=== PATIENT | female | born 1995 | race African-American/Black ===

== ENCOUNTER 2020-05-02 17:02 | Emergency (ER) | payer OTHER, SELFPAY ==
[2020-05-02 17:20] VITALS: BP 110/60; PULSE 74; RESP 15; O2SAT 98; BMI 24.0
[2020-05-02 18:00] VITALS: BP 117/63; PULSE 77; RESP 18; TEMP 39.1
--- NOTE | 2020-05-02 18:11 | ED.GENADULT ---
HPI - General Adult General Chief complaint: General Medical Stated complaint: Pelvic lump Time Seen by Provider: 05/02/20 17:44 Source: patient Mode of arrival: ambulatory Limitations: no limitations History of Present Illness HPI narrative: Patient presents to ED for pelvic pain. Patient states states having lunmp of present in right inner labia since given 2 years ago, but then since last night started have pain in that area. Patient denies any recent shaving day or trauma. Patient states no fever or chills. Related Data Previous Rx's Medication Instructions Recorded amoxicillin-pot clavulanate 1 tab PO Q12H #20 tab 05/02/20 [Augmentin] naproxen 500 mg PO BID PRN #20 tab 05/02/20 oxycodone-acetaminophen [Percocet] 1 tab PO TID PRN #12 tab 05/02/20 sulfamethoxazole-trimethoprim 1 tab PO Q12H #14 tab 05/02/20 [Bactrim DS] Allergies Allergy/AdvReac Type Severity Reaction Status Date / Time No Known Allergies Allergy Unverified 03/10/20 19:48 [No Known Allergies*] Review of Systems Review of Systems: Yes all other systems are reviewed and are negative Constitutional: Constitutional: Reports as per HPI and Reports no additional constitutional complaints Eyes: Eyes: Reports as per HPI and Reports no additional eye complaints ENT: Reports system reviewed and no additional complaints, except as documented and Reports as per HPI Cardiovascular: Cardiovascular: Reports as per HPI and Reports no additional cardiovascular complaints Respiratory: Respiratory: Reports as per HPI and Reports no additional respiratory complaints Gastrointestinal: Gastrointestinal: Reports as per HPI and Reports no additional gastrointestinal complaints Genitourinary: Genitourinary: Reports no additional female genitourinary complaints, Reports as per HPI, Denies hematuria, Denies difficulty voiding, Denies nocturia, Denies genital pruritis, Denies genital lesions, Denies menorrhagia, Denies dyspareunia, Denies dysuria, Denies pelvic pain, Denies flank pain and Denies urinary incontinence Comments: Right labial lump Musculoskeletal: Musculoskeletal: Reports no additional musculoskeletal complaints and Reports as per HPI Neurologic: Reports system reviewed and no additional complaints, except as documented and Reports as per HPI Psychiatric: Psychiatric: Reports no additional psychiatric complaints and Reports as per HPI [facility] Past Medical History Medical History (Updated 05/03/20 @ 00:04 by Background Daemon) No known health problems Social History Social History Alcohol intake: never Smoking Status: Never smoker Use of substances other than those prescribed or required for medical reasons: No Advance Directives: No Advance Directives Information Provided: No Physical Exam Vital Signs: Vital Signs: Last Vital Signs Temp 100.3 F 05/02/20 19:53 Pulse 95 05/02/20 19:08 Resp 14 05/02/20 19:08 BP 117/63 05/02/20 18:00 Pulse Ox 96 05/02/20 19:08 Body Mass Index 24.0 Const: General: cooperative, healthy appearing, comfortable, no acute distress, well developed, alert and awake Orientation/consciousness: oriented to person, oriented to place, oriented to time and patient oriented x3 HENMT: Head: Yes normal to inspection and Yes No palpable skull fracture present Eyes: General: appearance normal, both eyes and all related structures Visual Becker: normal visual becker by confrontation Neck: Neck: Yes normal visual inspection and Yes full ROM Chest: Chest palpation & inspection: normal inspection of the chest, normal palpation of entire chest wall and no localized rib tenderness Resp: Effort & Inspection: normal respiratory effort and able to speak in complete sentences Cardio: Jugular venous distension: no JVD Heart sounds: S1 normal heart sound present and S2 normal heart sound present GI: Inspection: Yes normal to inspection and No abdominal wall ecchymosis Palpation (GI): Soft to palpation, not firm, nontender, no guarding and not rigid : Other: patient positive for tenderness in right in her vaginal labial /bartholoin area, but negative for any fluctuance/protruding mass/erythema. Negative for any lesions such as vesicles or chancroid. Negative for any lacerations or abrasions. Negative for any mass, erythema, fluctulance on examination of buttocks, pubis, perineal area, or rectum. General: No CVA tenderness and Yes no CVA tenderness Back/Spine/Pelvis: Back: no CVA tenderness, No CVA tenderness and No back tenderness Skin: General skin exam: no rashes or lesions noted Neuro: General: oriented to person, oriented to place, oriented to time, patient oriented x3, gait normal and CN's II-XI intact bilaterally Cranial nerves: Yes CN's II-XII intact bilaterally Extrem: General: Yes normal to inspection and Yes full ROM Psych: Appearance: grossly normal, well kempt and not disheveled Course Course Course Narrative: Patient's area of pain Right labia/bartholyn is not ready for drainage. Negative for any fluctuance or overt erythema/cellulitis. patient informed presently incision and drainage not indicated. Patient will be discharged with antibiotics and pain medication. Differential is early labia vs early bartholin's abscess/cyst not yet ready for I&D. Reevaluation(s) Reevaluation #1: Patient will be given prescription for augmentin, doxycycline, Percocet, and naproxen Time: 18:21 Reevaluation #2: patient is febrile, but not tachycardic and not toxic appearing. No indication for septic workup. Patient was given Tylenol and Motrin. patient will also be swabbed for COVID-19 virus. Patient is not in any distress. Patient educated on warm compress on area 4 times a day for 15 minutes. Medical Decision Making MDM Narrative Medical decision making narrative: early labia abscess vs early bartholyn abscess Discharge Plan Discharge Clinical Impression: Abscess of labia, Bartholin's gland infection Patient Disposition: Home, Self-Care Instructions: Abscess (ED), Bartholin Cyst (ED) Additional Instructions: return to the ED for worsening pain, increased swelling, redness, fever, chills, or any other concerning symptoms. Recommend warm compress on area. Prescriptions: New amoxicillin-pot clavulanate [Augmentin] 875-125 mg tablet 1 tab PO Q12H Qty: 20 RF: 0 sulfamethoxazole-trimethoprim [Bactrim DS] 800-160 mg tablet 1 tab PO Q12H Qty: 14 RF: 0 oxycodone-acetaminophen [Percocet] 5-325 mg tablet 1 tab PO TID PRN (Reason: pain) Qty: 12 RF: 0 naproxen 500 mg tablet 500 mg PO BID PRN (Reason: pain) Qty: 20 RF: 0 Referrals: Mason Quinonez MD [Physician] - 2 days ( Early right labia versus early Bartholin's cyst/ abscess not ready to be drained. Area is tender, but negative for any erythema, fluctuance, or mass on palpation.) Interventions: ED Discharge Assessment Last Done: 05/02/20 19:53 Discharge Date/Time: 05/02/20 19:58 Print Language: Korean
[2020-05-02] MEDS: oxyCODONE HCl Immed Release 5 MG TABLET PO (18:21)
[2020-05-02] MEDS: Ibuprofen 800 MG TABLET PO (18:42)
[2020-05-02] MEDS: Acetaminophen 325 MG TABLET 650 MG PO (18:43)
[2020-05-02 19:08] VITALS: PULSE 95; RESP 14; TEMP 38.3; O2SAT 96
[2020-05-02 19:53] VITALS: TEMP 37.9
== END 2020-05-02 19:58 | disposition home or self-care (01) ==
PROVIDERS: Physician Assistant; Emergency Provider Emergency Medicine
DX: N76.4 Abscess of vulva (principal); N75.0 Cyst of Bartholin's gland; Z20.828 Contact with and (suspected) exposure to other viral communicable diseases
CPT/HCPCS: 99283; 99284; U0003

== ENCOUNTER 2020-05-07 17:25 | Emergency (ER) | payer OTHER, SELFPAY ==
[2020-05-07 18:06] VITALS: BP 100/72; PULSE 88; RESP 20; TEMP 37.4; O2SAT 100; BMI 25.0
--- NOTE | 2020-05-07 18:38 | CT_ITS ---
EXAMINATION: CT ABDOMEN AND PELVIS WITH CONTRAST CLINICAL INFORMATION: Diffuse abdominal pain. Right Bartholin's cyst. Rule out abscess COMPARISON: None TECHNIQUE: Multidetector volumetric images were obtained from the superior aspect of the liver through the pubic symphysis following administration 85 mL of Omnipaque 350 intravenous contrast. Sagittal and coronal reformatted images were obtained on the technologist's workstation. Oral contrast: No This CT examination was performed using dose optimization techniques as appropriate, variously including the following: *Automated exposure control *Adjustment of mA and/or kV according to patient size (this includes techniques or standardized protocols for targeted exams where dose is matched to indication/reason for exam; i.e. extremities or head) *Use of iterative reconstruction technique FINDINGS: LUNG BASES: The visualized lung bases are unremarkable. LIVER, GALLBLADDER, AND BILIARY TREE: The liver is normal in size, shape, and attenuation. No focal hepatic lesion or biliary ductal dilatation is present. The gallbladder is unremarkable with no evidence of radiopaque gallstones, gallbladder wall thickening, or obvious pericholecystic inflammatory changes. PANCREAS: Unremarkable. SPLEEN: Unremarkable. ADRENAL GLANDS: Unremarkable. KIDNEYS AND URETERS: The kidneys are normal in size, shape, and attenuation. No hydronephrosis, hydroureter, or calculi seen. No perinephric stranding. BLADDER: Unremarkable. GASTROINTESTINAL TRACT: Stomach and small bowel nondilated. Normal appendix. No evidence of colitis or diverticulitis. ABDOMINAL WALL: There are fluid collections in the perineum bilaterally. On the left it measures 3.6 x 2.4 x 4.0 cm. On the right, there is thick rim enhancement measuring 6.4 x 2.9 x 4 cm. There is fluid and fat stranding within the subcutaneous fat of the perineum extending anterior to the labia and lower pelvic wall at the level of the pubic symphysis. There are changes in the anterior pelvic wall consistent with prior Pfannenstiel incision. LYMPH NODES: Normal. VASCULAR: Unremarkable. PELVIC VISCERA: There is likely a section scar of the lower uterine segment. Uterus otherwise normal. No adnexal mass. OSSEOUS STRUCTURES: No acute osseous abnormality. CT/CT abdomen pelvis w con IMPRESSION: There are 2 fluid collections in the perineum. There is a thick walled rim-enhancing 6.4 x 2.9 x 4 cm fluid collection in the right perineum with overlying fluid and fat stranding in the perineum and extending into the anterior pelvic wall. Appearance is consistent with an abscess/infected perineal cyst. 3.6 x 2.4 x 4.0 cm fluid collection has a thin peripheral rim, possibly infected but less likely.
[2020-05-07] MEDS: 0.9 % Sodium Chloride 1,000 ML 999 ML IVCONT (19:08)
[2020-05-07 19:12] LABS: Basophils Absolute Auto 0.1 X10*3/uL (0.0-0.2); Basophils Percent Auto 0.3 % (0-2); Eosinophils Absolute Auto 0.1 X10*3/uL (0.0-0.4); Eosinophils Percent Auto 0.7 % (0-4); Hematocrit 37.8 % (37-47); Hemoglobin 11.5 g/dl (12.0-16.0); Imm Gran Abs Auto 0.07 X10*3/uL (0.00-0.03); Imm Gran Pct Auto 0.5 % (0.0-0.4); Lymphocytes Absolute Auto 1.7 X10*3/uL (1.2-4.9); Lymphocytes Percent Auto 11.7 % (20-40); MANUAL DIFF FLAG NO; Mean Corpuscular HGB Conc 30.4 g/dl (31.0-35.0); Mean Corpuscular Hemoglobin 22.4 pg (27.0-33.0); Mean Corpuscular Volume 73.7 fL (80-98); Mean Platelet Volume 9.8 fL (9.4-12.3); Monocytes Absolute Auto 1.3 X10*3/uL (0.1-1.2); Monocytes Percent Auto 8.8 % (2-11); Neutrophils Absolute Auto 11.4 X10*3/uL (2.0-8.3); Platelet Count 407 X10*3/uL (160-400); Red Blood Count 5.13 X10*6/uL (4.20-5.50); Red Cell Distribution Width 13.8 % (11.0-16.0); White Blood Count 14.7 X10*3/uL (4.8-10.8)
[2020-05-07 19:32] LABS: Lipase 4 U/L (8-78)
[2020-05-07 19:33] LABS: Alanine Aminotransferase 24 U/L (0-31); Albumin Level 4.1 g/dL (3.5-5.0); Alkaline Phosphatase 68 U/L (39-117); Anion Gap 12 (12-20); Aspartate Amino Transferase 19 U/L (5-31); Bilirubin Direct 0.2 mg/dL (0.0-0.5); Bilirubin Total 0.5 mg/dL (0.0-1.0); Blood Urea Nitrogen 11 mg/dL (9-16); Calcium 8.8 mg/dL (8.4-10.2); Carbon Dioxide 30 mmol/L (22-29); Chloride 100 mmol/L (96-108); Creatinine Clr Calc Pharmacy 98.9; Estimated Glomerular Filt Rate > 60; Glucose Random 88 mg/dL (60-115); Magnesium 1.9 mg/dL (1.6-2.6); Potassium 4.1 mmol/l (3.3-5.1); Sodium 138 mmol/L (135-145)
[2020-05-07 19:56] VITALS: BP 104/50; PULSE 88; RESP 16; TEMP 36.6; O2SAT 100
[2020-05-07 20:04] LABS: Glucose Urine UA NEG (NEG); Leukocyte Esterase Urine NEG (NEG); Nitrite Urine NEG (NEG); Urine Blood NEG (NEG); Urine Ketones 5 MG/DL (NEG); Urine Protein NEG (NEG-TRACE)
[2020-05-07 20:06] LABS: Appearance Urine CLEAR; Color Urine YELLOW
[2020-05-07 20:07] LABS: UPreg QC Valid YES; Urine Pregnancy NEGATIVE (NEGATIVE)
--- NOTE | 2020-05-07 20:30 | ED_ITS ---
HPI - Skin/Abscess/Foreign Bdy General Chief complaint: Skin/Abscess/Foreign Body Stated complaint: Abscess Time Seen by Provider: 05/07/20 18:12 Source: patient Mode of arrival: ambulatory History of Present Illness HPI narrative: 25-year-old female with a past medical history of presenting to the ED complaining of pelvic pain/abscess x1 week. Patient reports she was seen and treated in the ED on 05/02 for similar symptoms, area unable to drained at that time, was discharged on Augmentin and Bactrim, however reports pain/symptoms worsening, with area growing. Reports difficulty urinating/having BM due to pain. Also reports fevers at home and abdominal pain. Denies drainage from area, dysuria, vaginal bleeding or discharge, nausea/vomiting Related Data Previous Rx's Medication Instructions Recorded amoxicillin-pot clavulanate 1 tab PO Q12H #20 tab 05/02/20 [Augmentin] naproxen 500 mg PO BID PRN #20 tab 05/02/20 oxycodone-acetaminophen [Percocet] 1 tab PO TID PRN #12 tab 05/02/20 sulfamethoxazole-trimethoprim 1 tab PO Q12H #14 tab 05/02/20 [Bactrim DS] Allergies Allergy/AdvReac Type Severity Reaction Status Date / Time No Known Allergies Allergy Unverified 03/10/20 19:48 [No Known Allergies*] Review of Systems Review of Systems: Constitutional: No Weight loss, +Fever, No Chills Cardiovascular: No Chest Pain, No SOB Respiratory: No Cough, No Sputum Gastrointestinal: No Nausea, No Vomiting, No Diarrhea, No Constipation, + Abdominal pain Genitourinary: No irregular bleeding, No Dysuria, No Hematuria,No Flank Pain, no vaginal discharge/bleeding Musculoskeletal: No joint pain, No Myalgias, No Joint Swelling Skin: + abscess/lump, No rash Yes all other systems are reviewed and are negative PMFSH Past Medical History Attestation statement: The following information was validated with the patient. Medical History (Updated 05/07/20 @ 21:59 by HUAN Lee) No known health problems Social History Social History Alcohol intake: never Smoking Status: Never smoker Use of substances other than those prescribed or required for medical reasons: No Advance Directives: No Advance Directives Information Provided: Yes Physical Exam Vital Signs: Vital Signs: Last Vital Signs Temp 97.8 F 05/07/20 19:56 Pulse 88 05/07/20 19:56 Resp 16 05/07/20 19:56 BP 104/50 L 05/07/20 19:56 Pulse Ox 100 05/07/20 19:56 Body Mass Index 25.0 Const: General: cooperative and healthy appearing Orientation/conscio usness: patient oriented x3 Limitations: no limitations HENMT: Head: Yes normal to inspection Ears: hearing grossly normal bilaterally General nose exam: Normal external nose present Face and sinus: Yes normal facial exam Eyes: General: appearance normal, both eyes and all related structures EOM: EOMs intact bilaterally Neck: Neck: Yes normal visual inspection Resp: Effort & Inspection: normal respiratory effort Cardio: Rate: regular rate GI: Inspection: Yes normal to inspection Palpation (GI): Soft to palpation, Tenderness to palpation present (GI) (Diffusely), no guarding and not rigid : Other: +swollen Right labia/bartholin gland area with +ttp. No erythema. +indurated. No discrete fluctuance. No rectal involvement. No gential lesions noted Skin: Wounds: no wounds Neuro: General: patient oriented x3 Extrem: General: Yes normal to inspection Course Course Course Narrative: -leukocytosis of 14.7, labs otherwise unremarkable, UA negative, negative -showing 2 fluid collections in the perineum. Right perineum consistent with ab scess/infected perineal cyst. Left with fluid collection that appears less likely infected >> I&D performed in the ED of both Bartholin cysts, moderate amount of malodorous pus drainage expressed from right side, minimal pus/serosanguineous- drainage, expressed from left. Word catheter placed in right. Discussed with patient to continue previously prescribed antibiotics, and follow-up with her [facility] on Saturday. Worrisome signs and symptoms and strict return precautions discussed. Patient tolerated procedure well Procedures Abscess I/D Site: bartholin's gland Side (if applicable): left and right Local Anesthetic: lidocaine 1% Amount of anesthesia used (mL): 5 Technique: incised with blade Packing used?: Word catheter (in Right) MDM - Skin/Abscess/Foreign Bdy MDM Narrative Medical decision making narrative: 25-year-old female with a past medical history of presenting to the ED complaining of pelvic pain/abscess x1 week. on exam low-grade temp 99.4?, physical exam as above, low concern for sepsis at this time. Concern for Bartholin cyst/abscess vs edema vs cellulitis. Patient's abdomen soft/diffusely tender. Rule out appendicitis/diverticulitis/pancreatitis Plan: Labs, UA, CT AP, reassess Differential Diagnosis Differential diagnosis: Likely abscess of skin or subcutaneous tissue and cellulitis Lab Data Result diagrams: 05/07/20 19:06 05/07/20 19:06 Labs: Lab Results 05/07/20 05/07/20 05/07/20 Range/Units 19:06 19:06 19:06 WBC 14.7 H (4.8-10.8) X10*3/uL RBC 5.13 (4.20-5.50) X10*6/uL Hgb 11.5 L (12.0-16.0) g/dl Hct 37.8 (37-47) % MCV 73.7 L (80-98) fL MCH 22.4 L (27.0-33.0) pg MCHC 30.4 L (31.0-35.0) g/dl RDW 13.8 (11.0-16.0) % Plt Count 407 H (160-400) X10*3/uL MPV 9.8 (9.4-12.3) fL Immature Gran % (Auto) 0.5 H (0.0-0.4) % Neut % (Auto) 78.0 H (45-73) % Lymph % (Auto) 11.7 L (20-40) % Stephenson % (Auto) 8.8 (2-11) % Eos % (Auto) 0.7 (0-4) % Baso % (Auto) 0.3 (0-2) % Lymph # (Auto) 1.7 (1.2-4.9) X10*3/uL Stephenson # (Auto) 1.3 H (0.1-1.2) X10*3/uL Eos # (Auto) 0.1 (0.0-0.4) X10*3/uL Baso # (Auto) 0.1 (0.0-0.2) X10*3/uL Abs Immat Gran (auto) 0.07 H (0.00-0.03) X10*3/uL Absolute Neuts (auto) 11.4 H (2.0-8.3) X10*3/uL Absolute Nucleated RBC 0.000 (0.0-0.012) X10*3/uL Nucleated RBC % (auto) 0.0 (0.0-0.2) /100WBC Hold Blue Top SEE NOTE Sodium 138 (135-145) mmol/L Potassium 4.1 (3.3-5.1) mmol/l Chloride 100 (96-108) mmol/L Carbon Dioxide 30 H (22-29) mmol/L Anion Gap 12 (12-20) BUN 11 (9-16) mg/dL Creatinine 0.80 (0.5-1.4) mg/dL Estim Creat Clear Calc 98.9 Estimated GFR > 60 Random Glucose 88 (60-115) mg/dL Calcium 8.8 (8.4-10.2) mg/dL Magnesium 1.9 (1.6-2.6) mg/dL Total Bilirubin 0.5 (0.0-1.0) mg/dL Direct Bilirubin 0.2 (0.0-0.5) mg/dL AST 19 (5-31) U/L ALT 24 (0-31) U/L Alkaline Phosphatase 68 (39-117) U/L Total Protein 7.0 (6.5-8.0) g/dL Albumin 4.1 (3.5-5.0) g/dL Lipase (8-78) U/L Urine Color Urine Appearance Urine pH (5.0-8.0) Ur Specific Steele (1.005-1.025) Urine Protein (NEG-TRACE) MG/DL Urine Glucose (UA) (NEG) MG/DL Urine Ketones (NEG) MG/DL Urine Blood (NEG) Urine Nitrite (NEG) Ur Leukocyte Esterase (NEG) Urine Test (NEGATIVE) 05/07/20 05/07/20 Range/Units 19:06 19:55 WBC (4.8-10.8) X10*3/uL RBC (4.20-5.50) X10*6/uL Hgb (12.0-16.0) g/dl Hct (37-47) % MCV (80-98) fL MCH (27.0-33.0) pg MCHC (31.0-35.0) g/dl RDW (11.0-16.0) % Plt Count (160-400) X10*3/uL MPV (9.4-12.3) fL Immature Gran % (Auto) (0.0-0.4) % Neut % (Auto) (45-73) % Lymph % (Auto) (20-40) % Stephenson % (Auto) (2-11) % Eos % (Auto) (0-4) % Baso % (Auto) (0-2) % Lymph # (Auto) (1.2-4.9) X10*3/uL Stephenson # (Auto) (0.1-1.2) X10*3/uL Eos # (Auto) (0.0-0.4) X10*3/uL Baso # (Auto) (0.0-0.2) X10*3/uL Abs Immat Gran (auto) (0.00-0.03) X10*3/uL Absolute Neuts (auto) (2.0-8.3) X10*3/uL Absolute Nucleated RBC (0.0-0.012) X10*3/uL Nucleated RBC % (auto) (0.0-0.2) /100WBC Hold Blue Top Sodium (135-145) mmol/L Potassium (3.3-5.1) mmol/l Chloride (96-108) mmol/L Carbon Dioxide (22-29) mmol/L Anion Gap (12-20) BUN (9-16) mg/dL Creatinine (0.5-1.4) mg/dL Estim Creat Clear Calc Estimated GFR Random Glucose (60-115) mg/dL Calcium (8.4-10.2) mg/dL Magnesium (1.6-2.6) mg/dL Total Bilirubin (0.0-1.0) mg/dL Direct Bilirubin (0.0-0.5) mg/dL AST (5-31) U/L ALT (0-31) U/L Alkaline Phosphatase (39-117) U/L Total Protein (6.5-8.0) g/dL Albumin (3.5-5.0) g/dL Lipase 4 L (8-78) U/L Urine Color YELLOW Urine Appearance CLEAR Urine pH 7.0 (5.0-8.0) Ur Specific Steele 1.020 (1.005-1.025) Urine Protein NEG (NEG-TRACE) MG/DL Urine Glucose (UA) NEG (NEG) MG/DL Urine Ketones 5 (NEG) MG/DL Urine Blood NEG (NEG) Urine Nitrite NEG (NEG) Ur Leukocyte Esterase NEG (NEG) Urine Test NEGATIVE (NEGATIVE) Discharge Plan Discharge Clinical Impression: Abscess of Bartholin's gland Patient Disposition: Home, Self-Care Instructions: Bartholin Cyst (ED) Additional Instructions: Continue taking previously prescribed antibiotics You have a catheter placed on the right cyst, keep in place, avoid dislodging it from area It is normal for areas to continue to drain for the next 24-48 hours If developed fever, area begins to grow, pain becomes unbearable, or pus see malodorous drainage recurs return to the ED immediately YOU NEED TO SEE HER OBGYN ON SATURDAY Prescriptions: No Action amoxicillin-pot clavulanate [Augmentin] 875-125 mg tablet 1 tab PO Q12H Qty: 20 RF: 0 sulfamethoxazole-trimethoprim [Bactrim DS] 800-160 mg tablet 1 tab PO Q12H Qty: 14 RF: 0 oxycodone-acetaminophen [Percocet] 5-325 mg tablet 1 tab PO TID PRN (Reason: pain) Qty: 12 RF: 0 naproxen 500 mg tablet 500 mg PO BID PRN (Reason: pain) Qty: 20 RF: 0 Referrals: Mason Quinonez MD [Physician] - 2 days
[2020-05-07] MEDS: iohexoL 350 MG/ML 100 ML INFUS..BTL IV (20:36)
[2020-05-07] MEDS: Ketorolac Tromethamine 15 MG/ML VIAL IVPUSH (20:53)
[2020-05-07] MEDS: Lidocaine HCl 1 % MPF 5 ML VIAL SUBCUT ×2 (21:04→21:05)
[2020-05-07 22:00] VITALS: BP 109/70; PULSE 88; RESP 18; TEMP 36.9; O2SAT 98
== END 2020-05-07 22:15 | disposition home or self-care (01) ==
PROVIDERS: Physician Assistant; Emergency Provider Student in an Organized Health Care Education/Training Program
DX: N75.0 Cyst of Bartholin's gland (principal); R10.2 Pelvic and perineal pain; Z79.899 Other long term (current) drug therapy
CPT/HCPCS: 36415; 56420; 74177; 80048; 80076; 81003; 81025; 83690; 83735; 85025; 96361; 96374; 99284; J1885; Q9967

== ENCOUNTER 2020-05-09 15:23 | Outpatient (REF) | payer OTHER, SELFPAY ==
[2020-05-10 11:35] LABS: CT PCR NOT DETECTED (Not Detect.); NG PCR NOT DETECTED (Not Detect.)
== END 2020-05-09 15:24 | disposition home or self-care (01) ==
LOC: HO.LAB 15:23
PROVIDERS: Visit Provider Obstetrics & Gynecology
DX: N75.1 Abscess of Bartholin's gland (principal); Z11.8 Encounter for screening for other infectious and parasitic diseases; Z11.3 Encounter for screening for infections with a predominantly sexual mode of transmission; Z11.4 Encounter for screening for human immunodeficiency virus [HIV]; Z11.59 Encounter for screening for other viral diseases
CPT/HCPCS: 87491; 87591; 99212

== ENCOUNTER 2020-05-09 16:36 | Outpatient (REF) | payer OTHER, SELFPAY ==
[2020-05-09 18:38] LABS: Syphilis Screen Nonreactive (Nonreactive)
[2020-05-10 04:32] LABS: HBsAGNum1 0.21 S/CO (0.00-0.99); Hepatitis B Surface Antigen Negative (Negative)
[2020-05-10 04:37] LABS: HIV AB/AG Nonreactive (Nonreactive); HIV Num 1 0.09 S/CO (0.00-0.99)
[2020-05-10 13:56] LABS: BV Int Neg Control Negative (Negative); BV Int Pos Control Positive (Positive)
== END 2020-05-09 16:37 | disposition home or self-care (01) ==
LOC: HO.LAB 16:36
PROVIDERS: Visit Provider Obstetrics & Gynecology
DX: N75.1 Abscess of Bartholin's gland (principal); Z11.3 Encounter for screening for infections with a predominantly sexual mode of transmission; Z11.8 Encounter for screening for other infectious and parasitic diseases; Z11.4 Encounter for screening for human immunodeficiency virus [HIV]; Z11.59 Encounter for screening for other viral diseases
CPT/HCPCS: 86780; 87340; 87389; 87480; 87510; 87660

== ENCOUNTER 2020-12-26 00:41 | Emergency (ER) | payer OTHER, SELFPAY ==
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
[2020-12-26 00:50] VITALS: BP 115/59; PULSE 56; TEMP 37; O2SAT 98; BMI 25.4
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
[2020-12-26] MEDS: Acetaminophen 325 MG TABLET 975 MG PO (01:47)
== END 2020-12-26 02:01 | disposition home or self-care (01) ==
PROVIDERS: Emergency Provider Student in an Organized Health Care Education/Training Program
DX: S02.2XXA Fracture of nasal bones, initial encounter for closed fracture (principal); Y04.2XXA Assault by strike against or bumped into by another person, initial encounter; Y93.89 Activity, other specified; Y92.009 Unspecified place in unspecified non-institutional (private) residence as the place of occurrence of the external cause; Y99.9 Unspecified external cause status
CPT/HCPCS: 70450; 70486; 72125; 99284

== ENCOUNTER 2021-03-20 14:10 | Emergency (ER) | payer OTHER, SELFPAY | END 2021-03-20 16:13 | disposition left against medical advice (07) | PROVIDERS: Emergency Provider Emergency Medicine; PCP Internal Medicine | DX: R11.10 Vomiting, unspecified (principal); M79.10 Myalgia, unspecified site ==

== ENCOUNTER 2021-04-26 02:25 | Emergency (ER) | payer OTHER, SELFPAY ==
--- NOTE | ~2021-04-26 | XR_ITS ---
EXAMINATION: XR CHEST CLINICAL INFORMATION: Left chest wall tenderness, cough COMPARISON: 08/09/2019 TECHNIQUE: PA and lateral views of the chest were obtained. FINDINGS: Azygos fissure. Lungs are otherwise clear. No consolidation, pneumothorax, or pleural effusion. Cardiac and mediastinal contours are normal. Pulmonary vasculature is unremarkable. Trachea is midline. Osseous structures are unremarkable. XR/XR chest 2V IMPRESSION: Normal chest radiographs.
[2021-04-26 02:27] VITALS: BP 108/57; PULSE 84; RESP 16; TEMP 37; O2SAT 98; BMI 25.7
[2021-04-26] MEDS: Acetaminophen 325 MG TABLET 975 MG PO (02:46)
[2021-04-26] MEDS: Ketorolac Tromethamine 15 MG/ML VIAL IM (02:47)
[2021-04-26] MEDS: Lidocaine 4 % Patch ADH..PATCH 1 PATCH TRANSDERMA (02:47)
--- NOTE | 2021-04-26 02:50 | ED.GENADULT ---
HPI - General Adult General Chief complaint: General Medical Stated complaint: chest pain Time Seen by Provider: 04/26/21 02:36 Source: patient Mode of arrival: ambulatory History of Present Illness HPI narrative: This is a 26-year-old female without significant past medical history who presents with complaints of significant left-sided chest wall discomfort after reporting a chronic cough since January. This is not been associated with any fever, chills, sore throat, diaphoresis, or nausea. Patient states that she experiences ?a lot of discomfort? when she attempts to lie down and states that it worsens with deep inspiration and the pain is reproducible. Related Data Previous Rx's Medication Instructions Recorded amoxicillin 875 mg-potassium 1 tab PO Q12H #20 tab 05/02/20 clavulanate 125 mg tablet (Augmentin) naproxen 500 mg tablet 500 mg PO BID PRN #20 tab 05/02/20 oxycodone-acetaminophen 5 mg-325 1 tab PO TID PRN #12 tab 05/02/20 mg tablet (Percocet) sulfamethoxazole 800 1 tab PO Q12H #14 tab 05/02/20 mg-trimethoprim 160 mg tablet (Bactrim DS) acetaminophen 325 mg capsule 650 mg PO Q8H PRN #30 cap 05/09/20 (Tylenol) ibuprofen 800 mg tablet 800 mg PO Q8H PRN #30 tab 05/09/20 metronidazole 0.75 % vaginal gel 1 appful VAGINAL BEDTIME 5 Days 05/11/20 (Metrogel Vaginal) #70 g acetaminophen 500 mg tablet 1,000 mg PO QID PRN #14 tab 12/26/20 (Tylenol Extra Strength) oxycodone 5 mg tablet 5 mg PO BID PRN #14 tab 12/26/20 ketorolac 10 mg tablet 10 mg PO Q6H PRN 5 Days #20 tab 04/26/21 Allergies Allergy/AdvReac Type Severity Reaction Status Date / Time No Known Allergies Allergy Verified 05/09/20 15:50 [No Known Allergies*] Review of Systems Review of Systems: Pertinent positives and negatives as stated in the HPI and 10 point review of symptoms is otherwise negative. PMFSH Past Medical History Source: nursing notes reviewed Medical History No known health problems Surgical History Hx of section Hx of tubal ligation Family History Family History Maternal Grandmother Breast cancer Social History Social History Alcohol intake: never Patient Tobacco Use Status: Never used Tobacco Use of substances other than those prescribed or required for medical reasons: No Advance Directives: No Advance Directives Information Provided: Yes Patient : No Physical Exam Vital Signs: Vital Signs: Last Vital Signs Temp 98.6 F 04/26/21 02:27 Pulse 84 04/26/21 02:27 Resp 16 04/26/21 02:27 BP 108/57 L 04/26/21 02:27 Pulse Ox 98 04/26/21 02:27 Body Mass Index 25.7 VITAL SIGNS: Reviewed. GENERAL: Well developed, well nourished, in no acute distress. HEAD: Normocephalic/atraumatic EYES: PERRLA, EOMI OROPHARYNX: no oral lesions noted, posterior pharynx clear NECK: Supple, no adenopathy LUNGS: Normal breath sounds. No adventitious sounds or accessory muscle use. SpO2<98>, tenderness to palpation of left anterior and axillary chest wall without crepitus or deformity CARDIOVASCULAR: Regular rate and rhythm without noted murmurs, no JVD or lower extremity edema. ABDOMEN: Soft, non-tender, non-distended with bowel sounds. SKIN: Inspection of the skin reveals no rashes NEUROLOGIC: Alert and oriented x 4. Course Course Course Narrative: This is a 26-year-old female with history and clinical presentation consistent with costochondritis and/or anterior muscle wall strain likely secondary from persistent coughing. Will provide patient with combination analgesics as well as obtain a two view chest x-ray. Low clinical suspicion for any cardiopulmonary etiology. Review of all investigations otherwise negative for acute findings other than in incidental finding first-degree AV block with a RI-224 and patient is otherwise asymptomatic. Results discussed with her at bedside and she is discharged for further outpatient follow-up with her primary care provider. Medical Decision Making ECG Data Attestation: I personally reviewed and interpreted this ECG as follows: Prior ECG tracings: not available for review Interpretation: Sinus rhythm with 1st degree AV block, HR-76, RI-224, QRS/QTC are within normal limits. Discharge Plan Discharge Clinical Impression: Chest wall pain, Costochondritis Patient Disposition: Home, Self-Care Instructions: Costochondritis (ED), Chest Wall Pain (ED) Additional Instructions: 1. Tylenol 1000 mg, orally, every 6 hours as needed for pain control. Do not exceed 4000 mg within 24 hours. 2. Lidocaine patch, available [id number], apply to area of maximal tenderness as directed on the outside packaging. 3. Follow-up with your primary care provider by calling the office this morning to set up a telehealth appointment and/or schedule an inpatient appointment. Return to the ER for worsening of your symptoms. Prescriptions: New ketorolac 10 mg tablet 10 mg PO Q6H PRN (Reason: pain) 5 Days Qty: 20 RF: 0 No Action metronidazole [Metrogel Vaginal] 0.75 % gel 1 appful vaginal BEDTIME 5 Days Qty: 70 RF: 0 amoxicillin-pot clavulanate [Augmentin] 875-125 mg tablet 1 tab PO Q12H Qty: 20 RF: 0 sulfamethoxazole-trimethoprim [Bactrim DS] 800-160 mg tablet 1 tab PO Q12H Qty: 14 RF: 0 oxycodone-acetaminophen [Percocet] 5-325 mg tablet 1 tab PO TID PRN (Reason: pain) Qty: 12 RF: 0 naproxen 500 mg tablet 500 mg PO BID PRN (Reason: pain) Qty: 20 RF: 0 acetaminophen [Tylenol Extra Strength] 500 mg tablet 1,000 mg PO QID PRN (Reason: fever or pain) Qty: 14 RF: 0 oxycodone 5 mg tablet 5 mg PO BID PRN (Reason: pain) Qty: 14 RF: 0 acetaminophen [Tylenol] 325 mg capsule 650 mg PO Q8H PRN (Reason: pain) Qty: 30 RF: 0 ibuprofen 800 mg tablet 800 mg PO Q8H PRN (Reason: pain) Qty: 30 RF: 0 Referrals: Lyssa Bryant MD [Primary Care Provider] - 1 day (Patient experiencing significant left chest wall pain, chest x-ray and EKG were otherwise negative except incidental finding of RI-224. Please re-evaluate.)
--- NOTE | 2021-04-26 02:54 | PC.NURSE ---
pt a&o, no sob, pt reports cough since january. medicated per Aug. pt taken for chest xray.
--- NOTE | 2021-04-26 03:22 | ECG_ITS ---
Test Reason : chest pain Blood Pressure : / mmHG Vent. Rate : 076 BPM Atrial Rate : 076 BPM P-R Int : 224 ms QRS Dur : 084 ms QT Int : 372 ms P-R-T Axes : 071 053 053 degrees QTc Int : 418 ms Sinus rhythm with 1st degree A-V block Nonspecific T wave abnormality Abnormal ECG No significant changes seen Referred By: Va Jacobsen Electronically Signed By:SHELBY ISAAC MD
[2021-04-26] MEDS: Cyclobenzaprine HCl 5 MG TABLET PO (03:31)
--- NOTE | 2021-04-26 03:31 | PC.NURSE ---
ekg completed and medicated per mar
[2021-04-26 04:18] VITALS: RESP 16
== END 2021-04-26 04:27 | disposition home or self-care (01) ==
PROVIDERS: Emergency Provider Student in an Organized Health Care Education/Training Program; PCP Internal Medicine
DX: M94.0 Chondrocostal junction syndrome [Tietze] (principal)
CPT/HCPCS: 71046; 93005; 96372; 99284; J1885

== ENCOUNTER 2021-11-04 02:39 | Emergency (ER) | payer OTHER, SELFPAY ==
--- NOTE | 2021-11-04 03:32 | PC.NURSE ---
Called pt for triage in waiting room, but no response.
== END 2021-11-04 04:13 | disposition left against medical advice (07) ==
PROVIDERS: Emergency Provider Emergency Medicine
DX: R51.9 Headache, unspecified (principal); R07.89 Other chest pain

== ENCOUNTER 2022-01-19 02:22 | Emergency (ER) | payer OTHER, SELFPAY ==
--- NOTE | ~2022-01-19 | XR_ITS ---
EXAMINATION: XR CHEST CLINICAL INFORMATION: Chest pain COMPARISON: 04/26/2021 TECHNIQUE: Frontal view of the chest was obtained. FINDINGS: No significant abnormality is noted involving the heart, lungs, mediastinum, bony thorax or soft tissues. XR/XR chest 1V IMPRESSION: Unremarkable examination.
[2022-01-19 02:27] VITALS: BP 103/58; PULSE 57; RESP 16; TEMP 36.5; O2SAT 100; BMI 32.1
--- NOTE | 2022-01-19 02:28 | ECG_ITS ---
Test Reason : cp Blood Pressure : / mmHG Vent. Rate : 061 BPM Atrial Rate : 061 BPM P-R Int : 190 ms QRS Dur : 070 ms QT Int : 412 ms P-R-T Axes : 060 036 033 degrees QTc Int : 414 ms Normal sinus rhythm with sinus arrhythmia Normal ECG No previous ECGs available Referred By: Generic ED Physician Electronically Signed By:ARTUR JAVIER
[2022-01-19 02:59] LABS: MANUAL DIFF FLAG NO
[2022-01-19 03:00] LABS: Basophils Percent Auto 0.6 % (0-2); Eosinophils Absolute Auto 0.2 X10*3/uL (0.0-0.4); Eosinophils Percent Auto 2.1 % (0-4); Hematocrit 35.7 % (37.0-47.0); Imm Gran Abs Auto 0.01 X10*3/uL (0.00-0.03); Imm Gran Pct Auto 0.1 % (0.0-0.4); Lymphocytes Absolute Auto 3.3 X10*3/uL (1.2-4.9); Lymphocytes Percent Auto 46.9 % (20-40); Mean Corpuscular HGB Conc 30.8 g/dl (31.0-35.0); Mean Corpuscular Hemoglobin 22.8 pg (27.0-33.0); Mean Corpuscular Volume 74.1 fL (80.0-98.0); Mean Platelet Volume 10.6 fL (9.4-12.3); Monocytes Absolute Auto 0.5 X10*3/uL (0.1-1.2); Monocytes Percent Auto 7.7 % (2-11); Neutrophils Percent Auto 42.6 % (45-73); Platelet Count 330 X10*3/uL (160-400); Red Blood Count 4.82 X10*6/uL (4.20-5.50); Red Cell Distribution Width 14.5 % (11.0-16.0)
[2022-01-19 03:14] LABS: Anion Gap 11 (12-20); Blood Urea Nitrogen 13 mg/dL (9-16); Calcium 8.9 mg/dL (8.4-10.2); Carbon Dioxide 30 mmol/L (22-29); Chloride 105 mmol/L (96-108); Creatinine Clr Calc Pharmacy 100.4; Estimated Glomerular Filt Rate > 60; Glucose Random 96 mg/dL (60-115); Potassium 3.8 mmol/L (3.3-5.1); Sodium 142 mmol/L (135-145)
[2022-01-19 03:21] LABS: Troponin-I High Sensitivity < 3.5 ng/L (<3.5-17.0)
[2022-01-19 04:00] VITALS: BP 113/70; PULSE 80; O2SAT 97
[2022-01-19 06:00] VITALS: BP 107/55; PULSE 71; O2SAT 97
[2022-01-19 08:02] LABS: C Reactive Protein 0.11 mg/dL (< or = 0.50)
[2022-01-19 08:03] LABS: COVID-19 Test Negative (Negative)
--- NOTE | 2022-01-19 08:09 | ED.GENADULT ---
HPI - General Adult General Chief complaint: Dyspnea Stated complaint: chest pain, dizziness, L side tingling Time Seen by Provider: 01/19/22 07:21 Source: patient Mode of arrival: ambulatory History of Present Illness HPI narrative: 26-year-old female without significant past medical history presents with chest tightness for 2 months as well as intermittent left-sided chest discomfort and radiation into her left upper extremity, she otherwise denies unexplained weight loss/night sweats/fever/chills and denies any family history of early cardiac disease. She also reports intermittent headaches that do resolve with taking Tylenol and ibuprofen and otherwise states that she is eating and drinking without difficulty, denies any GI or symptoms. Patient is a nonsmoker, not on control, no recent travel, no calf swelling. Related Data Previous Rx's Medication Instructions Recorded amoxicillin 875 mg-potassium 1 tab PO Q12H #20 tabs 05/02/20 clavulanate 125 mg tablet (Augmentin) naproxen 500 mg tablet 500 mg PO BID PRN pain #20 tabs 05/02/20 oxycodone-acetaminophen 5 mg-325 1 tab PO TID PRN pain #12 tabs 05/02/20 mg tablet (Percocet) sulfamethoxazole 800 1 tab PO Q12H #14 tabs 05/02/20 mg-trimethoprim 160 mg tablet (Bactrim DS) acetaminophen 325 mg capsule 650 mg PO Q8H PRN pain #30 caps 05/09/20 (Tylenol) ibuprofen 800 mg tablet 800 mg PO Q8H PRN pain #30 tabs 05/09/20 metronidazole 0.75 % vaginal gel 1 appful vaginal BEDTIME 5 days 05/11/20 (Metrogel Vaginal) #70 grams acetaminophen 500 mg tablet 1,000 mg PO QID PRN fever or pain 12/26/20 (Tylenol Extra Strength) #14 tabs oxycodone 5 mg tablet 5 mg PO BID PRN pain #14 tabs 12/26/20 ketorolac 10 mg tablet 10 mg PO Q6H PRN pain 5 days #20 04/26/21 tabs Allergies Allergy/AdvReac Type Severity Reaction Status Date / Time No Known Allergies Allergy Verified 05/09/20 15:50 [No Known Allergies*] Review of Systems Review of Systems: Pertinent positives and negatives as stated in HPI 10 point review of systems is otherwise negative. PMFSH Past Medical History Source: nursing notes reviewed Medical History No known health problems Surgical History Hx of section Hx of tubal ligation Family History Family History Maternal Grandmother Breast cancer Social History Social History Alcohol intake: never Patient Tobacco Use Status: Never used Tobacco Advance Directives: No Advance Directives Information Provided: Yes Physical Exam ED Vital Signs: Vital Signs - 24 hr 01/19/22 02:27 01/19/22 04:00 01/19/22 06:00 Temperature 97.7 F Pulse Rate 57 80 71 Respiratory Rate 16 Blood Pressure 103/58 L 113/70 107/55 L Pulse Oximetry 100 97 97 Oxygen Delivery Method Room Air Room Air Room Air BMI result Body Mass Index 32.1 VITAL SIGNS: Reviewed. GENERAL: Well developed, well nourished, in no acute distress. HEAD: Normocephalic/atraumatic EYES: PERRLA, EOMI EARS: Ext canals without abnormality OROPHARYNX: no oral lesions noted, posterior pharynx clear LUNGS: Normal breath sounds, no tachypnea/wheeze/rhonchi/rales, no increased work of breathing. SpO2<100> CARDIOVASCULAR: Regular rate and rhythm without noted murmurs ABDOMEN: Soft, non-tender, non-distended with bowel sounds. MUSCULOSKELETAL: No tenderness, deformities, or effusions noted on gross inspection. EXTREMITIES: No cyanosis, clubbing or edema. SKIN: Inspection of the skin reveals no rashes NEUROLOGIC: Alert and oriented x 4. Strength and sensation to light touch were grossly intact x 4. Course Course Course Narrative: 26-year-old female with history and clinical presentation consistent with possible inflammatory etiology but low clinical suspicion for cardiopulmonary etiology and patient is otherwise PERC negative. Additional evaluation for inflammatory marker showed that CRP is within normal limits at COVID-19 is negative. All results were reviewed and no acute findings to better explain patient's presentation. She was strongly encouraged to follow up with the primary care provider and continue taking [id number] analgesics for her headaches. Medical Decision Making Lab Data Result diagrams: 01/19/22 02:55 01/19/22 02:55 Labs: Lab Results 01/19/22 01/19/22 01/19/22 Range/Units 02:55 02:55 02:55 WBC 7.0 (4.8-10.8) X10*3/uL RBC 4.82 (4.20-5.50) X10*6/uL Hgb 11.0 L (12.0-16.0) g/dl Hct 35.7 L (37.0-47.0) % MCV 74.1 L (80.0-98.0) fL MCH 22.8 L (27.0-33.0) pg MCHC 30.8 L (31.0-35.0) g/dl RDW 14.5 (11.0-16.0) % Plt Count 330 (160-400) X10*3/uL MPV 10.6 (9.4-12.3) fL Immature Gran % (Auto) 0.1 (0.0-0.4) % Neut % (Auto) 42.6 L (45-73) % Lymph % (Auto) 46.9 H (20-40) % [place]upe % (Auto) 7.7 (2-11) % Eos % (Auto) 2.1 (0-4) % Baso % (Auto) 0.6 (0-2) % Lymph # (Auto) 3.3 (1.2-4.9) X10*3/uL [place] # (Auto) 0.5 (0.1-1.2) X10*3/uL Eos # (Auto) 0.2 (0.0-0.4) X10*3/uL Baso # (Auto) 0.0 (0.0-0.2) X10*3/uL Abs Immat Gran (auto) 0.01 (0.00-0.03) X10*3/uL Absolute Neuts (auto) 3.0 (2.0-8.3) x10*3/uL Absolute Nucleated RBC 0.000 (0.0-0.012) X10*3/uL Nucleated RBC % (auto) 0.0 (0.0-0.2) /100WBC Sodium 142 (135-145) mmol/L Potassium 3.8 (3.3-5.1) mmol/L Chloride 105 (96-108) mmol/L Carbon Dioxide 30 H (22-29) mmol/L Anion Gap 11 L (12-20) BUN 13 (9-16) mg/dL Creatinine 0.88 (0.5-1.4) mg/dL Estim Creat Clear Calc 100.4 Estimated GFR > 60 Random Glucose 96 (60-115) mg/dL Calcium 8.9 (8.4-10.2) mg/dL Troponin I High Sens < 3.5 (<3.5-17.0) ng/L C-Reactive Protein 0.11 (< or = 0.50) mg/dL COVID-19 (ROGELIO) (Negative) COVID-19 Clin Com 01/19/22 Range/Units 07:41 WBC (4.8-10.8) X10*3/uL RBC (4.20-5.50) X10*6/uL Hgb (12.0-16.0) g/dl Hct (37.0-47.0) % MCV (80.0-98.0) fL MCH (27.0-33.0) pg MCHC (31.0-35.0) g/dl RDW (11.0-16.0) % Plt Count (160-400) X10*3/uL MPV (9.4-12.3) fL Immature Gran % (Auto) (0.0-0.4) % Neut % (Auto) (45-73) % Lymph % (Auto) (20-40) % [place] % (Auto) (2-11) % Eos % (Auto) (0-4) % Baso % (Auto) (0-2) % Lymph # (Auto) (1.2-4.9) X10*3/uL [place] # (Auto) (0.1-1.2) X10*3/uL Eos # (Auto) (0.0-0.4) X10*3/uL Baso # (Auto) (0.0-0.2) X10*3/uL Abs Immat Gran (auto) (0.00-0.03) X10*3/uL Absolute Neuts (auto) (2.0-8.3) x10*3/uL Absolute Nucleated RBC (0.0-0.012) X10*3/uL Nucleated RBC % (auto) (0.0-0.2) /100WBC Sodium (135-145) mmol/L Potassium (3.3-5.1) mmol/L Chloride (96-108) mmol/L Carbon Dioxide (22-29) mmol/L Anion Gap (12-20) BUN (9-16) mg/dL Creatinine (0.5-1.4) mg/dL Estim Creat Clear Calc Estimated GFR Random Glucose (60-115) mg/dL Calcium (8.4-10.2) mg/dL Troponin I High Sens (<3.5-17.0) ng/L C-Reactive Protein (< or = 0.50) mg/dL COVID-19 (ROGELIO) Negative (Negative) COVID-19 Clin Com See Note ECG Data Attestation: I personally reviewed and interpreted this ECG as follows: Prior ECG tracings: available for review Interpretation: NSR, HR-61, no STEMI, SD/QRS/QTC are within normal limits. Discharge Plan Discharge Clinical Impression: Atypical chest pain, Headache Patient Disposition: Home, Self-Care Instructions: Chest Pain (ED), Noncardiac Chest Pain (ED), General Headache (ED) Additional Instructions: 1. Continue to take [id number] Tylenol/ibuprofen as needed for your headaches. Please continue stay well hydrated especially with water. 2. Follow-up with your primary care provider by calling the office today and setting up an appointment for re-evaluation and further outpatient management and workup. Return to the ER for worsening symptoms. Prescriptions: No Action metronidazole [Metrogel Vaginal] 0.75 % gel 1 appful vaginal BEDTIME 5 Days Qty: 70 0RF amoxicillin-pot clavulanate [Augmentin] 875-125 mg tablet 1 tab PO Q12H Qty: 20 0RF sulfamethoxazole-trimethoprim [Bactrim DS] 800-160 mg tablet 1 tab PO Q12H Qty: 14 0RF oxycodone-acetaminophen [Percocet] 5-325 mg tablet 1 tab PO TID PRN (Reason: pain) Qty: 12 0RF naproxen 500 mg tablet 500 mg PO BID PRN (Reason: pain) Qty: 20 0RF acetaminophen [Tylenol Extra Strength] 500 mg tablet 1,000 mg PO QID PRN (Reason: fever or pain) Qty: 14 0RF oxycodone 5 mg tablet 5 mg PO BID PRN (Reason: pain) Qty: 14 0RF ketorolac 10 mg tablet 10 mg PO Q6H PRN (Reason: pain) 5 Days Qty: 20 0RF Rx Instructions: Patient received Toradol in the emergency room. acetaminophen [Tylenol] 325 mg capsule 650 mg PO Q8H PRN (Reason: pain) Qty: 30 0RF ibuprofen 800 mg tablet 800 mg PO Q8H PRN (Reason: pain) Qty: 30 0RF
== END 2022-01-19 08:20 | disposition home or self-care (01) ==
PROVIDERS: Emergency Provider Student in an Organized Health Care Education/Training Program
DX: R07.89 Other chest pain (principal); R51.9 Headache, unspecified; Z20.822 Contact with and (suspected) exposure to COVID-19; R06.00 Dyspnea, unspecified
CPT/HCPCS: 36415; 71045; 80048; 84484; 85025; 86140; 87635; 93005; 99284

== ENCOUNTER 2022-02-14 11:13 | Emergency (ER) | payer OTHER, SELFPAY ==
[2022-02-14 11:15] VITALS: BP 155/65; PULSE 77; RESP 19; TEMP 36.6; O2SAT 98; BMI 27.1
[2022-02-14] MEDS: Tetracaine HCl/PF 0.5% Oph Sol 4 ML DROPS 1 DROP EYE-BOTH (13:08)
--- NOTE | 2022-02-14 13:11 | ED_ITS ---
HPI - Eye Problem General Chief complaint: Eye Problems Stated complaint: l eye issue bluried vision Time Seen by Provider: 02/14/22 13:03 Source: patient Mode of arrival: ambulatory Limitations: no limitations History of Present Illness HPI Narrative: 26-year-old female came in for evaluation left eye pain and decrease vision. Patient been having left eye infection for 2 weeks, patient was seen several times at [facility] prescribed 2 different antibiotic eye ointment and eye drops, patient also was prescribed oral antibiotic that she has been compliant with for the past 2 weeks, patient reported progressive worsening her symptoms and more discharge from the left eye. Patient declined any fever or chills. Related Data Previous Rx's Medication Instructions Recorded amoxicillin 875 mg-potassium 1 tab PO Q12H #20 tabs 05/02/20 clavulanate 125 mg tablet (Augmentin) naproxen 500 mg tablet 500 mg PO BID PRN pain #20 tabs 05/02/20 oxycodone-acetaminophen 5 mg-325 1 tab PO TID PRN pain #12 tabs 05/02/20 mg tablet (Percocet) sulfamethoxazole 800 1 tab PO Q12H #14 tabs 05/02/20 mg-trimethoprim 160 mg tablet (Bactrim DS) acetaminophen 325 mg capsule 650 mg PO Q8H PRN pain #30 caps 05/09/20 (Tylenol) ibuprofen 800 mg tablet 800 mg PO Q8H PRN pain #30 tabs 05/09/20 metronidazole 0.75 % (37.5 mg/5 1 appful vaginal BEDTIME 5 days 05/11/20 gram) vaginal gel (Metrogel #70 grams Vaginal) acetaminophen 500 mg tablet 1,000 mg PO QID PRN fever or pain 12/26/20 (Tylenol Extra Strength) #14 tabs oxycodone 5 mg tablet 5 mg PO BID PRN pain #14 tabs 12/26/20 ketorolac 10 mg tablet 10 mg PO Q6H PRN pain 5 days #20 04/26/21 tabs Allergies Allergy/AdvReac Type Severity Reaction Status Date / Time No Known Allergies Allergy Verified 05/09/20 15:50 [No Known Allergies*] Review of Systems Review of Systems: All other systems are reviewed and are negative Constitutional: Reports as per HPI and Reports no additional constitutional complaints Eyes: Reports as per HPI and Reports no additional eye complaints Reports system reviewed and no additional complaints, except as documented Cardiovascular: Reports as per HPI and Reports no additional cardiovascular complaints Respiratory: Reports as per HPI and Reports no additional respiratory complaints Gastrointestinal: Reports as per HPI and Reports no additional gastrointestinal complaints Genitourinary: Reports no additional female genitourinary complaints Musculoskeletal: Reports no additional musculoskeletal complaints Skin/Breast: Reports system reviewed and no additional complaints, except as docu Psychiatric: Reports no additional psychiatric complaints Endocrine: Reports no additional endocrine complaints Hematologic/Lymphatic: Reports no additional hematologic/lymphatic complaints Allergic/Immunologic: Reports no additional allergic/immunologic complaints Reports system reviewed and no additional complaints, except as documented and Reports Abnormal speech present [facility] Past Medical History Medical History No known health problems Surgical History Hx of section Hx of tubal ligation Family History Family History Maternal Grandmother Breast cancer Social History Social History Alcohol intake: never Patient Tobacco Use Status: Never used Tobacco Advance Directives: No Advance Directives Information Provided: No Physical Exam Vital Signs: Vital Signs: Last Vital Signs Temp 98 F 02/14/22 11:15 Pulse 77 02/14/22 11:15 Resp 19 02/14/22 11:15 BP 155/65 H 02/14/22 11:15 Pulse Ox 98 02/14/22 11:15 BMI result Body Mass Index 27.1 Vital signs have been reviewed as appeared to be correct. Blood pressure normal. Heart rate normal. Respiration rate normal. Temperature normal. Oxygen saturation normal. Appearance: Alert. Oriented X3. No acute distress. Head: Normal external exam. Normocephalic. Atraumatic. No Pelaez signs noted. No raccoon eyes noted Eyes: PERRLA. EOMI. Eyelids swollen, conjunctiva is injected. Visual acuity left 20/30/right 20/25/bilateral 20/25. ENT: TM's Normal. Pharynx normal. Uvula midline. Moist mucous membranes. No trismus noted. No drooling noted. No muffled voice noted. Neck: Normal inspection. Neck supple. FROM. No adenopathy. Thyroid Normal. No meningeal signs. No neck mass noted. CVS: Normal heart rate and rhythm. Heart sound normal. No murmurs noted. Pulses normal throughout. Respiratory: No respiratory distress. Painless inspiration. Breath sounds normal. No wheezes/rales/rhonchi noted. Chest nontender. No accessory muscle usage noted or decreased air movement noted. Abdomen: Soft and nontender. Bowel sounds normal in all 4 quadrants. No distention noted. No organomegaly noted. No visible injury noted. Back: No CVA tenderness. Full range of motion noted. Skin: Skin warm and dry. Normal skin color. Normal skin turgor. No rashes/lesions/lacerations noted. Extremities: No lower extremity edema. Extremities exhibit normal range of motion. Extremities nontender. Neuro: Oriented X 3. Cranial nerve exam: II-XII are grossly intact No motor deficit. No sensory deficit. Reflexes normal. Course Course Course Narrative: 26-year-old female came in for evaluation of blepharitis and conjunctivitis despite using several different antibiotics and oral antibiotic prescribed at the urgent care, the case was discussed with Dr. Stephens who is kindly willing to take the patient to his office now. Patient be discharged to his office. Discharge Plan Discharge Clinical Impression: Bacterial conjunctivitis, Blepharitis Patient Disposition: Home, Self-Care Instructions: Conjunctivitis (ED) Additional Instructions: Go to Dr. Stephens office now. Prescriptions: No Action metronidazole [Metrogel Vaginal] 0.75 % gel 1 appful vaginal BEDTIME 5 Days Qty: 70 0RF amoxicillin-pot clavulanate [Augmentin] 875-125 mg tablet 1 tab PO Q12H Qty: 20 0RF sulfamethoxazole-trimethoprim [Bactrim DS] 800-160 mg tablet 1 tab PO Q12H Qty: 14 0RF oxycodone-acetaminophen [Percocet] 5-325 mg tablet 1 tab PO TID PRN (Reason: pain) Qty: 12 0RF naproxen 500 mg tablet 500 mg PO BID PRN (Reason: pain) Qty: 20 0RF acetaminophen [Tylenol Extra Strength] 500 mg tablet 1,000 mg PO QID PRN (Reason: fever or pain) Qty: 14 0RF oxycodone 5 mg tablet 5 mg PO BID PRN (Reason: pain) Qty: 14 0RF ketorolac 10 mg tablet 10 mg PO Q6H PRN (Reason: pain) 5 Days Qty: 20 0RF Rx Instructions: Patient received Toradol in the emergency room. acetaminophen [Tylenol] 325 mg capsule 650 mg PO Q8H PRN (Reason: pain) Qty: 30 0RF ibuprofen 800 mg tablet 800 mg PO Q8H PRN (Reason: pain) Qty: 30 0RF Referrals: Kevin Stephens [Physician] - Interventions: ED Discharge Assessment Last Done: 02/14/22 14:11 Discharge Date/Time: 02/14/22 14:12
== END 2022-02-14 14:12 | disposition home or self-care (01) ==
PROVIDERS: Emergency Provider Emergency Medicine; PCP Internal Medicine
DX: H01.00B Unspecified blepharitis left eye, upper and lower eyelids (principal); H10.9 Unspecified conjunctivitis; H53.8 Other visual disturbances; Z79.899 Other long term (current) drug therapy
CPT/HCPCS: 99282; 99283

== ENCOUNTER 2022-08-24 15:59 | Emergency (ER) | payer OTHER, SELFPAY ==
[2022-08-24 16:02] VITALS: BP 135/78; PULSE 73; RESP 16; TEMP 35.7; O2SAT 99; BMI 27.8
--- NOTE | 2022-08-24 16:18 | ED_ITS ---
HPI - Female Genitourinary General Chief complaint: Urogenital-Female Stated complaint: ?UTI Time Seen by Provider: 08/24/22 16:18 Source: patient Mode of arrival: ambulatory Limitations: no limitations History of Present Illness HPI Narrative: Patient is a 27 year old assigned female at with no reported medical history presenting to the emergency department today with pressure in her low abdomen, pain with urination, and blood in her urine. Patient states that over the last few days she has had increased pressure in her lower abdomen, increased pain with urination, and blood in her urine. Patient denies any dizziness, lightheadedness, nausea, vomiting, fever, chills, blurry vision, double vision, loss of vision, chest pain, difficulty breathing, shortness of breath, back pain, night sweats, syncope or a near syncopal episode, recent trauma or falls, bowel incontinence, bladder incontinence, bowel retention, bladder retention, or any other complaints at this time. Patient also expressed some concern of STI exposure as her boyfriend was recently unfaithful. MD elicited complaint: dysuria Onset (ago): day(s) Severity: mild Severity scale (1-10): 3 Vaginal discharge: none Vaginal bleeding: none Urinary symptoms: Dysuria and Hematuria Exacerbating factors: none Relieving factors: none Treatment prior to arrival: none Related Data Previous Rx's Medication Instructions Recorded amoxicillin 875 mg-potassium 1 tab PO Q12H #20 tabs 05/02/20 clavulanate 125 mg tablet (Augmentin) naproxen 500 mg tablet 500 mg PO BID PRN pain #20 tabs 05/02/20 oxycodone-acetaminophen 5 mg-325 1 tab PO TID PRN pain #12 tabs 05/02/20 mg tablet (Percocet) sulfamethoxazole 800 1 tab PO Q12H #14 tabs 05/02/20 mg-trimethoprim 160 mg tablet (Bactrim DS) acetaminophen 325 mg capsule 650 mg PO Q8H PRN pain #30 caps 05/09/20 (Tylenol) ibuprofen 800 mg tablet 800 mg PO Q8H PRN pain #30 tabs 05/09/20 metronidazole 0.75 % (37.5 mg/5 1 appful vaginal BEDTIME 5 days 05/11/20 gram) vaginal gel (Metrogel #70 grams Vaginal) acetaminophen 500 mg tablet 1,000 mg PO QID PRN fever or pain 12/26/20 (Tylenol Extra Strength) #14 tabs oxycodone 5 mg tablet 5 mg PO BID PRN pain #14 tabs 12/26/20 ketorolac 10 mg tablet 10 mg PO Q6H PRN pain 5 days #20 04/26/21 tabs cephalexin 500 mg capsule 500 mg PO Q6H 7 days #28 caps 08/24/22 doxycycline hyclate 100 mg tablet 100 mg PO BID 7 days #14 tabs 08/24/22 Allergies Allergy/AdvReac Type Severity Reaction Status Date / Time No Known Allergies Allergy Verified 05/09/20 15:50 [No Known Allergies*] Review of Systems Constitutional: Constitutional: Reports no additional constitutional complaints, Denies chills, Denies fever(s) and Denies night sweats Eyes: Eyes: Reports no additional eye complaints, Denies blurry vision, Denies change in vision, Denies diplopia, Denies eye discharge, Denies loss of vision and Denies eye pain ENT: Denies dizziness Cardiovascular: Cardiovascular: Reports no additional cardiovascular complaints, Denies chest pain, Denies lightheadedness, Denies Loss of Consciousness and Denies dyspnea Respiratory: Respiratory: Reports no additional respiratory complaints and Denies dyspnea Gastrointestinal: Gastrointestinal: Reports no additional gastrointestinal complaints, Denies abdominal pain, Denies melena, Denies hematochezia, Denies change in bowel habits and Denies change in stool character Genitourinary: Genitourinary: Reports hematuria, Denies urinary frequency, Reports dysuria, Denies urinary incontinence, Denies urinary hesitancy and Denies urinary urgency Musculoskeletal: Musculoskeletal: Reports no additional musculoskeletal complaints, Denies numbness and Denies tingling Neurologic: Denies dizziness, Denies loss of vision, Denies numbness and Denies tingling Psychiatric: Psychiatric: Reports no additional psychiatric complaints Endocrine: Endocrine: Reports no additional endocrine complaints Hematologic/Lymphatic: Hematologic/Lymphatic: Reports no additional hematologic/lymphatic complaints Allergic/Immunologic: Allergic/Immunologic: Reports no additional allergic/immunologic complaints PMFSH Past Medical History Attestation statement: The following information was validated with the patient. Source: old records reviewed and nursing notes reviewed Medical History No known health problems Surgical History Hx of section Hx of tubal ligation Family History Family History Maternal Grandmother Breast cancer Social History Social History Alcohol intake: never Patient Tobacco Use Status: Never used Tobacco Smoked in Last 30 Days: No Use of substances other than those prescribed or required for medical reasons: No Any prior treatment program specific to substance use: No Advance Directives: No Advance Directives Information Provided: No Patient : No Physical Exam Vital Signs: Vital Signs: Last Vital Signs Temp 96.3 F L 08/24/22 16:02 Pulse 73 08/24/22 16:02 Resp 16 08/24/22 16:02 BP 135/78 08/24/22 16:02 Pulse Ox 99 08/24/22 16:02 O2 Del Method 08/24/22 16:02 BMI result Body Mass Index 27.8 Const: General: cooperative, no acute distress, alert and awake Nutritional Appearance: well nourished Orientation/consciousness: patient oriented x3 Limitations: no limitations HEENT: Head: Yes normal to inspection and Yes atraumatic Ears: hearing grossly normal bilaterally and external ears normal General nose exam: Normal external nose present, no nasal discharge noted and no epistaxis Face and sinus: Yes normal facial exam, No abrasion and No laceration Mouth: Normal oral and palatal mucosa present, no drooling and no muffled voice Eyes: General: appearance normal, both eyes and all related structures Periorbital: periorbital findings normal Eyelids: Yes eyelids normal Conjunctivae: conjunctivae normal Pupils: Equal, round and reactive pupils present EOM: EOMs intact bilaterally Neck: Neck: Yes normal visual inspection, Yes full ROM and Yes no lymphadenopathy Chest: Chest palpation & inspection: normal inspection of the chest Resp: Effort & Inspection: normal respiratory effort and able to speak in complete sentences Auscultation: clear to auscultation bilaterally Cardio: Rate: regular rate Rhythm: regular rhythm GI: Inspection: Yes normal to inspection Palpation (GI): Soft to palpation, not firm, nontender and no guarding Neuro: General: patient oriented x3 and moves all extremities Cranial nerves: Yes Equal, round and reactive pupils present Cognition (Neuro): normal cognition Motor exam (neuro): 5/5 motor strength present throughout Sensory Exam: Normal double simultaneous stimulation for sensation Coordination: glhnus-il-oese test normal Extrem: General: Yes normal to inspection, Yes full ROM and Yes capillary refill normal Psych: Appearance: grossly normal Mental Status: mental status grossly normal Affect: normal affect Attitude: cooperative Thought process: Normal thought process present Thought content: Normal thought content present Insight: Good insight present (Psych) Medications Administered Discontinued Medications Generic Name Dose Route Start Last Admin Trade Name Freq PRN Reason Stop Dose Admin Sodium Chloride 500 mls @ 999 mls/hr 08/24/22 17:00 08/24/22 17:06 Ns IV 08/24/22 17:30 Not Given .Q31M EDU Ceftriaxone Sodium 500 mg/ 50 mls @ 100 mls/hr 08/24/22 17:51 08/24/22 17:58 Sodium Chloride IV 08/24/22 18:20 100 mls/hr ONCE ONE Administration Ketorolac Tromethamine 15 mg 08/24/22 16:55 08/24/22 17:05 Ketorolac Tromethamine 15 Mg/Ml Vial IVPUSH 08/24/22 16:56 15 mg ONCE ONE Administration Oxybutynin Chloride 5 mg 08/24/22 16:57 08/24/22 17:19 Oxybutynin Chloride Er 5 Mg Tab.Er.24 PO 08/24/22 16:58 5 mg ONCE ONE Administration Medical Decision Making Medical Decision Making [facility] Narrative: Patient is a 27 year old assigned female at with no reported medical history presenting to the emergency department today with dysuria and hematuria. Patient's physical exam was unremarkable. Patient's blood work was unremarkable. Patient's urine showed an obvious urinary tract infection. I explained my ph ysical exam findings as well as all test results to the patient. I answered all questions asked by the patient. I stressed the importance of the patient taking her medication as prescribed. I stressed the importance of the patient following up with her primary care provider. I stressed the importance of the patient returning to the emergency department immediately if her symptoms were to worsen or if she were to develop any dizziness, shortness of breath, difficulty breathing, chest pain, blurry vision, loss of vision, nausea, vomiting, abdominal pain, fever, chills, back pain, or any other complaints. Patient verbalized agreement and understanding with this treatment plan and discharge. Differential Diagnosis Differential Diagnoses: The differential diagnosis associated with the presentation includes UTI Lab Data MDM Lab Attestation statement: I reviewed the patient's lab results. 08/24/22 17:01 08/24/22 17:01 Labs: Lab Results 08/24/22 08/24/22 08/24/22 Range/Units 16:24 16:24 17:01 WBC 9.0 (4.8-10.8) X10*3/uL RBC 5.47 (4.20-5.50) X10*6/uL Hgb 12.3 (12.0-16.0) g/dl Hct 40.7 (37.0-47.0) % MCV 74.4 L (80.0-98.0) fL MCH 22.5 L (27.0-33.0) pg MCHC 30.2 L (31.0-35.0) g/dl RDW 14.7 (11.0-16.0) % Plt Count 366 (160-400) X10*3/uL MPV 10.6 (9.4-12.3) fL Immature Gran % (Auto) 0.2 (0.0-0.4) % Neut % (Auto) 61.9 (45-73) % Lymph % (Auto) 30.2 (20-40) % [place] % (Auto) 6.7 (2-11) % Eos % (Auto) 0.8 (0-4) % Baso % (Auto) 0.2 (0-2) % Lymph # (Auto) 2.7 (1.2-4.9) X10*3/uL [place] # (Auto) 0.6 (0.1-1.2) X10*3/uL Eos # (Auto) 0.1 (0.0-0.4) X10*3/uL Baso # (Auto) 0.0 (0.0-0.2) X10*3/uL Abs Immat Gran (auto) 0.02 (0.00-0.03) X10*3/uL Absolute Neuts (auto) 5.6 (2.0-8.3) x10*3/uL Absolute Nucleated RBC 0.000 (0.0-0.012) X10*3/uL Nucleated RBC % (auto) 0.0 (0.0-0.2) /100WBC PT (10.0-13.1) SEC INR (0.9-1.1) APTT (26.0-36.4) SEC Sodium (135-145) mmol/L Potassium (3.3-5.1) mmol/L Chloride (96-108) mmol/L Carbon Dioxide (22-29) mmol/L Anion Gap (12-20) BUN (9-16) mg/dL Creatinine (0.5-1.4) mg/dL Estim Creat Clear Calc Estimated GFR Random Glucose (60-115) mg/dL Calcium (8.4-10.2) mg/dL Magnesium (1.6-2.6) mg/dL Total Bilirubin (0.0-1.0) mg/dL AST (5-31) U/L ALT (0-31) U/L Alkaline Phosphatase (39-117) U/L Total Protein (6.5-8.0) g/dL Albumin (3.5-5.0) g/dL Urine Color Yellow Urine Appearance Turbid Urine pH 6.5 (5.0-9.0) Ur Specific [place] 1.025 (1.005-1.025) Urine Protein 300 (3+) H (Neg-Trace) mg/dL Urine Glucose (UA) Negative (Negative) mg/dL Urine Ketones Trace (Negative) mg/dL Urine Blood Large (3+) H (Negative) Urine Nitrite Negative (Negative) Ur Leukocyte Esterase Large (3+) H (Negative) Urine RBC >20 H (0-2) /HPF Urine WBC >50 H (0-5) /HPF Ur Squamous Epith Cells 0-2 (0-2) /HPF Urine Bacteria Trace (None Seen) Hyaline Casts 0-2 (0-2) /LPF Urine Test NEGATIVE (NEGATIVE) 08/24/22 08/24/22 Range/Units 17:01 17:01 WBC (4.8-10.8) X10*3/uL RBC (4.20-5.50) X10*6/uL Hgb (12.0-16.0) g/dl Hct (37.0-47.0) % MCV (80.0-98.0) fL MCH (27.0-33.0) pg MCHC (31.0-35.0) g/dl RDW (11.0-16.0) % Plt Count (160-400) X10*3/uL MPV (9.4-12.3) fL Immature Gran % (Auto) (0.0-0.4) % Neut % (Auto) (45-73) % Lymph % (Auto) (20-40) % [place] % (Auto) (2-11) % Eos % (Auto) (0-4) % Baso % (Auto) (0-2) % Lymph # (Auto) (1.2-4.9) X10*3/uL [place] # (Auto) (0.1-1.2) X10*3/uL Eos # (Auto) (0.0-0.4) X10*3/uL Baso # (Auto) (0.0-0.2) X10*3/uL Abs Immat Gran (auto) (0.00-0.03) X10*3/uL Absolute Neuts (auto) (2.0-8.3) x10*3/uL Absolute Nucleated RBC (0.0-0.012) X10*3/uL Nucleated RBC % (auto) (0.0-0.2) /100WBC PT 11.1 (10.0-13.1) SEC INR 1.0 (0.9-1.1) APTT 34.9 (26.0-36.4) SEC Sodium 142 (135-145) mmol/L Potassium 4.5 (3.3-5.1) mmol/L Chloride 106 (96-108) mmol/L Carbon Dioxide 27 (22-29) mmol/L Anion Gap 14 (12-20) BUN 14 (9-16) mg/dL Creatinine 0.83 (0.5-1.4) mg/dL Estim Creat Clear Calc 98.2 Estimated GFR > 60 Random Glucose 91 (60-115) mg/dL Calcium 9.6 D (8.4-10.2) mg/dL Magnesium 1.9 (1.6-2.6) mg/dL Total Bilirubin 0.5 (0.0-1.0) mg/dL AST 15 (5-31) U/L ALT 14 (0-31) U/L Alkaline Phosphatase 44 (39-117) U/L Total Protein 7.3 (6.5-8.0) g/dL Albumin 4.4 (3.5-5.0) g/dL Urine Color Urine Appearance Urine pH (5.0-9.0) Ur Specific [place] (1.005-1.025) Urine Protein (Neg-Trace) mg/dL Urine Glucose (UA) (Negative) mg/dL Urine Ketones (Negative) mg/dL Urine Blood (Negative) Urine Nitrite (Negative) Ur Leukocyte Esterase (Negative) Urine RBC (0-2) /HPF Urine WBC (0-5) /HPF Ur Squamous Epith Cells (0-2) /HPF Urine Bacteria (None Seen) Hyaline Casts (0-2) /LPF Urine Test (NEGATIVE) Discharge Plan Discharge Clinical Impression: Urinary tract infection Patient Disposition: Home, Self-Care Instructions: Urinary Tract Infection in Women (ED) Additional Instructions: Follow up with your primary care provider. Return to the emergency department immediately if your symptoms worsen or if you develop any dizziness, shortness of breath, difficulty breathing, chest pain, blurry vision, loss of vision, nausea, vomiting, abdominal pain, fever, chills, back pain, or any other complaints. Prescriptions: New cephalexin 500 mg capsule 500 mg PO Q6H 7 Days Qty: 28 0RF doxycycline hyclate 100 mg tablet 100 mg PO BID 7 Days Qty: 14 0RF No Action metronidazole [Metrogel Vaginal] 0.75 % gel 1 appful vaginal BEDTIME 5 Days Qty: 70 0RF amoxicillin-pot clavulanate [Augmentin] 875-125 mg tablet 1 tab PO Q12H Qty: 20 0RF sulfamethoxazole-trimethoprim [Bactrim DS] 800-160 mg tablet 1 tab PO Q12H Qty: 14 0RF oxycodone-acetaminophen [Percocet] 5-325 mg tablet 1 tab PO TID PRN (Reason: pain) Qty: 12 0RF naproxen 500 mg tablet 500 mg PO BID PRN (Reason: pain) Qty: 20 0RF acetaminophen [Tylenol Extra Strength] 500 mg tablet 1,000 mg PO QID PRN (Reason: fever or pain) Qty: 14 0RF oxycodone 5 mg tablet 5 mg PO BID PRN (Reason: pain) Qty: 14 0RF ketorolac 10 mg tablet 10 mg PO Q6H PRN (Reason: pain) 5 Days Qty: 20 0RF Rx Instructions: Patient received Toradol in the emergency room. acetaminophen [Tylenol] 325 mg capsule 650 mg PO Q8H PRN (Reason: pain) Qty: 30 0RF ibuprofen 800 mg tablet 800 mg PO Q8H PRN (Reason: pain) Qty: 30 0RF Referrals: Alpesh Do MD [Primary Care Provider] - Stand Alone Forms: Work/School Release Interventions: ED Discharge Assessment Last Done: 08/24/22 18:59 Discharge Date/Time: 08/24/22 19:03 Print Language: Bulgarian
[2022-08-24 16:33] LABS: Appearance Urine Turbid; Color Urine Yellow; Glucose Urine UA Negative (Negative); Leukocyte Esterase Urine Large (3+) (Negative); Nitrite Urine Negative (Negative); PH 6.5 (5.0-9.0); Specific Gravity - Urine 1.025 (1.005-1.025); UMIC TRIGGER UACC YES; Urine Blood Large (3+) (Negative); Urine Ketones Trace mg/dL (Negative); Urine Protein 300 (3+) mg/dL (Neg-Trace)
[2022-08-24 16:34] LABS: UPreg QC Valid YES; Urine Pregnancy NEGATIVE (NEGATIVE)
[2022-08-24 16:50] LABS: Bacteria Urine Trace (None Seen); Hyaline Casts Urine 0-2 /LPF (0-2); RBC Urine >20 /HPF (0-2); Squamous Epithelial Cell Urine 0-2 /HPF (0-2); UACC Culture Trigger YES; WBC Urine >50 /HPF (0-5)
[2022-08-24] MEDS: Ketorolac Tromethamine 15 MG/ML VIAL IVPUSH (17:05)
[2022-08-24] MEDS: oxyBUTYnin chloride ER 5 MG TAB.ER.24 PO (17:19)
[2022-08-24 17:28] LABS: MANUAL DIFF FLAG NO
[2022-08-24 17:36] LABS: Basophils Percent Auto 0.2 % (0-2); Eosinophils Absolute Auto 0.1 X10*3/uL (0.0-0.4); Eosinophils Percent Auto 0.8 % (0-4); Hematocrit 40.7 % (37.0-47.0); Hemoglobin 12.3 g/dl (12.0-16.0); Imm Gran Abs Auto 0.02 X10*3/uL (0.00-0.03); Imm Gran Pct Auto 0.2 % (0.0-0.4); Lymphocytes Absolute Auto 2.7 X10*3/uL (1.2-4.9); Lymphocytes Percent Auto 30.2 % (20-40); Mean Corpuscular HGB Conc 30.2 g/dl (31.0-35.0); Mean Corpuscular Hemoglobin 22.5 pg (27.0-33.0); Mean Corpuscular Volume 74.4 fL (80.0-98.0); Mean Platelet Volume 10.6 fL (9.4-12.3); Monocytes Absolute Auto 0.6 X10*3/uL (0.1-1.2); Monocytes Percent Auto 6.7 % (2-11); Neutrophils Absolute Auto 5.6 x10*3/uL (2.0-8.3); Neutrophils Percent Auto 61.9 % (45-73); Platelet Count 366 X10*3/uL (160-400); Red Blood Count 5.47 X10*6/uL (4.20-5.50); Red Cell Distribution Width 14.7 % (11.0-16.0)
[2022-08-24 17:45] LABS: Prothrombin Time 11.1 SEC (10.0-13.1)
[2022-08-24 17:48] LABS: Partial Thromboplastin Time 34.9 SEC (26.0-36.4)
[2022-08-24 17:52] LABS: Alanine Aminotransferase 14 U/L (0-31); Albumin Level 4.4 g/dL (3.5-5.0); Alkaline Phosphatase 44 U/L (39-117); Anion Gap 14 (12-20); Aspartate Amino Transferase 15 U/L (5-31); Bilirubin Total 0.5 mg/dL (0.0-1.0); Blood Urea Nitrogen 14 mg/dL (9-16); Calcium 9.6 mg/dL (8.4-10.2); Carbon Dioxide 27 mmol/L (22-29); Chloride 106 mmol/L (96-108); Creatinine Clr Calc Pharmacy 98.2; Estimated Glomerular Filt Rate > 60; Glucose Random 91 mg/dL (60-115); Magnesium 1.9 mg/dL (1.6-2.6); Potassium 4.5 mmol/L (3.3-5.1); Sodium 142 mmol/L (135-145); Total Protein 7.3 g/dL (6.5-8.0)
[2022-08-25 06:35] LABS: CT PCR NOT DETECTED (Not Detect.); NG PCR NOT DETECTED (Not Detect.)
== END 2022-08-24 19:03 | disposition home or self-care (01) ==
PROVIDERS: Physician Assistant Medical; Emergency Provider Emergency Medicine Emergency Medical Services; PCP Internal Medicine
DX: N39.0 Urinary tract infection, site not specified (principal); R30.0 Dysuria; R31.9 Hematuria, unspecified; Z79.899 Other long term (current) drug therapy
CPT/HCPCS: 0353U; 36415; 51798; 80053; 81001; 81025; 83735; 85025; 85610; 85730; 87086; 87088; 87186; 96374; 96375; 99284; 99285; J0696; J1885

== ENCOUNTER 2023-03-02 14:09 | Emergency (ER) | payer OTHER, SELFPAY ==
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
[2023-03-02 14:31] VITALS: BP 136/70; PULSE 71; RESP 19; TEMP 36.6; O2SAT 98; BMI 27.1
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
[2023-03-02 16:01] LABS: UPreg QC Valid YES; Urine Pregnancy NEGATIVE (NEGATIVE)
== END 2023-03-02 16:49 | disposition home or self-care (01) ==
PROVIDERS: Nurse Practitioner Family; Emergency Provider Emergency Medicine; PCP Internal Medicine
DX: S06.0X0A Concussion without loss of consciousness, initial encounter (principal); S30.0XXA Contusion of lower back and pelvis, initial encounter; S00.81XA Abrasion of other part of head, initial encounter; Y00.XXXA Assault by blunt object, initial encounter; Z79.899 Other long term (current) drug therapy; Y93.9 Activity, unspecified; Y92.9 Unspecified place or not applicable; Y99.9 Unspecified external cause status
CPT/HCPCS: 70450; 71046; 81025; 99282; 99284

== ENCOUNTER 2023-04-03 19:44 | Emergency (ER) | payer OTHER, SELFPAY ==
[2023-04-03 19:47] VITALS: BP 120/66; PULSE 94; RESP 17; TEMP 37.6; O2SAT 100; BMI 27.1
--- NOTE | 2023-04-03 19:49 | ED_ITS ---
HPI - General Adult General Chief complaint: General Medical Stated complaint: chills, abdominal pain, sore throat Time Seen by Provider: 04/04/23 01:49 Source: patient Mode of arrival: ambulatory History of Present Illness HPI narrative: 28-year-old female who reports she think she has a Mike in [place] but denies any fevers, chills, vaginal discharge or urinary symptoms. Related Data Previous Rx's Medication Instructions Recorded amoxicillin 875 mg-potassium 1 tab PO Q12H #20 tabs 05/02/20 clavulanate 125 mg tablet (Augmentin) naproxen 500 mg tablet 500 mg PO BID PRN pain #20 tabs 05/02/20 oxycodone-acetaminophen 5 mg-325 1 tab PO TID PRN pain #12 tabs 05/02/20 mg tablet (Percocet) sulfamethoxazole 800 1 tab PO Q12H #14 tabs 05/02/20 mg-trimethoprim 160 mg tablet (Bactrim DS) acetaminophen 325 mg capsule 650 mg (2 x 325 mg) PO Q8H PRN 05/09/20 (Tylenol) pain #30 caps ibuprofen 800 mg tablet 800 mg PO Q8H PRN pain #30 tabs 05/09/20 metronidazole 0.75 % (37.5 mg/5 1 appful vaginal BEDTIME 5 days 05/11/20 gram) vaginal gel (Metrogel #70 grams Vaginal) acetaminophen 500 mg tablet 1,000 mg (2 x 500 mg) PO QID PRN 12/26/20 (Tylenol Extra Strength) fever or pain #14 tabs oxycodone 5 mg tablet 5 mg PO BID PRN pain #14 tabs 12/26/20 ketorolac 10 mg tablet 10 mg PO Q6H PRN pain 5 days #20 04/26/21 tabs cephalexin 500 mg capsule 500 mg PO Q6H 7 days #28 caps 08/24/22 doxycycline hyclate 100 mg tablet 100 mg PO BID 7 days #14 tabs 08/24/22 cyclobenzaprine 10 mg tablet 10 mg PO TID PRN muscle spasm #15 03/02/23 tabs ibuprofen 600 mg tablet 600 mg PO Q8H PRN pain #20 tabs 03/02/23 amoxicillin 875 mg-potassium 1 tab PO BID 5 days #10 tabs 10/12/23 clavulanate 125 mg tablet Allergies Allergy/AdvReac Type Severity Reaction Status Date / Time No Known Allergies Allergy Verified 04/03/23 19:47 [No Known Allergies*] Review of Systems 2 Review of Systems: Pertinent positives and negatives as stated in HPI PMFSH Past Medical History Source: nursing notes reviewed Medical History No known health problems Surgical History Hx of tubal ligation Hx of section Family History Family History Maternal Grandmother Breast cancer Social History Social History Alcohol intake: current Alcohol intake frequency: holidays/special occasions only Alcohol type: hard liquor Patient Tobacco Use Status: Never used Tobacco Smoked in Last 30 Days: No Use of substances other than those prescribed or required for medical reasons: No Any prior treatment program specific to substance use: No Advance Directives: No Advance Directives Information Provided: Yes Physical Exam ED Vital Signs: Vital Signs - 24 hr 04/03/23 19:47 04/04/23 03:44 Temperature 99.7 F 98.8 F Pulse Rate 94 78 Respiratory Rate 17 17 Blood Pressure 120/66 135/73 Pulse Oximetry 100 Oxygen Delivery Method Room Air Room Air BMI result Body Mass Index 27.1 VITAL SIGNS: Reviewed. GENERAL: Well developed, well nourished, in no acute distress. HEAD: Normocephalic/atraumatic EYES: PERRLA, EOMI LUNGS: Normal breath sounds. No adventitious sounds or accessory muscle use. SpO2<100> CARDIOVASCULAR: Regular rate and rhythm without noted murmurs ABDOMEN: Soft, non-tender, non-distended with bowel sounds. : [Integrated Pest Management Technician-Dannielle]-there is an approximate 3-4.5 cm cyst deep to the left labia majora, there is also a draining cyst on the right MUSCULOSKELETAL: No tenderness, deformities, or effusions noted on gross inspection. EXTREMITIES: No cyanosis, clubbing or edema. SKIN: Inspection of the skin reveals no rashes NEUROLOGIC: Alert and oriented x 4. Strength and sensation to light touch were grossly intact x 4. Course Course Course Narrative: This is an RME: Additional HPI, ROS, PE not included below will be deferred to primary provider. This is a [id number]-female presenting to the ER with a complaint of sore throat, chills, nausea vomiting, abdominal pain since this morning. Patient reports that she also noticed some left inner groin swelling. She has a history of bartholin cyst. Her last menstrual cycle was February 22. She is sexually active. Unsure of any new vaginal discharge. No vaginal bleeding Plan: Labs, strep, viral swabs, UA Medical Decision Making Medical Decision Making [facility] Narrative: 28-year-old female with history and clinical presentation consistent with Bartholin cyst and the on review of laboratory studies she does have a leukocytosis without left shift, she is afebrile, there is no evidence of anemia or thrombocytopenia. Chemistry indices are negative for LIZ and there are no electrolyte or liver enzyme abnormalities. Beta hCG is negative. Urinalysis is negative for UTI or hematuria. I informed the patient after examination that this was a cyst infection that I would be unable to relieve for her and directed her to call Dr. Quinonez's office 1st thing in the morning, will start her on antibiotics and there is no evidence of sepsis. Differential Diagnosis Differential Diagnoses: The differential diagnosis associated with the presentation includes Please see the discussion above Admission/Observation Consideration of admission/observation: Escalation of care including admission/observation considered Please see the discussion above Lab Data [facility] Lab Attestation statement: I reviewed the patient's lab results. Please see the discussion above 04/03/23 20:12 04/03/23 20:12 Labs: Lab Results 04/03/23 04/04/23 Range/Units 20:12 03:45 WBC 12.9 H (4.8-10.8) X10*3/uL RBC 5.31 (4.20-5.50) X10*6/uL Hgb 12.2 (12.0-16.0) g/dl Hct 40.0 (37.0-47.0) % MCV 75.3 L (80.0-98.0) fL MCH 23.0 L (27.0-33.0) pg MCHC 30.5 L (31.0-35.0) g/dl RDW 14.1 (11.0-16.0) % Plt Count 292 (160-400) X10*3/uL MPV 10.8 (9.4-12.3) fL Immature Gran % (Auto) 0.3 (0.0-0.4) % Neut % (Auto) 71.9 (45-73) % Lymph % (Auto) 19.9 L (20-40) % Bullock % (Auto) 7.1 (2-11) % Eos % (Auto) 0.3 (0-4) % Baso % (Auto) 0.5 (0-2) % Lymph # (Auto) 2.6 (1.2-4.9) X10*3/uL Bullock # (Auto) 0.9 (0.1-1.2) X10*3/uL Eos # (Auto) 0.0 (0.0-0.4) X10*3/uL Baso # (Auto) 0.1 (0.0-0.2) X10*3/uL Abs Immat Gran (auto) 0.04 H (0.00-0.03) X10*3/uL Absolute Neuts (auto) 9.2 H (2.0-8.3) x10*3/uL Absolute Nucleated RBC 0.000 (0.0-0.012) X10*3/uL Nucleated RBC % (auto) 0.0 (0.0-0.2) /100WBC Sodium 139 (135-145) mmol/L Potassium 3.7 (3.3-5.1) mmol/L Chloride 104 (96-108) mmol/L Carbon Dioxide 25 (22-29) mmol/L Anion Gap 14 (12-20) BUN 13 (9-16) mg/dL Creatinine 0.90 (0.5-1.4) mg/dL Estim Creat Clear Calc 88.7 Estimated GFR > 60 Random Glucose 108 (60-115) mg/dL Calcium 9.5 (8.4-10.2) mg/dL Total Bilirubin 0.8 (0.0-1.0) mg/dL Direct Bilirubin 0.3 (0.0-0.5) mg/dL AST 17 (5-31) U/L ALT 17 (0-31) U/L Alkaline Phosphatase 53 (39-117) U/L Total Protein 7.7 (6.5-8.0) g/dL Albumin 4.2 (3.5-5.0) g/dL Beta HCG, Quant < 2 mIU/mL Urine Color Yellow Urine Appearance Clear Urine pH 6.5 (5.0-9.0) Ur Specific Alliance >= 1.030 H (1.005-1.025) Urine Protein Negative (Neg-Trace) mg/dL Urine Glucose (UA) Negative (Negative) mg/dL Urine Ketones 15 (Negative) mg/dL Urine Blood Negative (Negative) Urine Nitrite Negative (Negative) Ur Leukocyte Esterase Small (1+) H (Negative) Urine RBC 0-2 (0-2) /HPF Urine WBC 0-5 (0-5) /HPF Ur Squamous Epith Cells 3-5 (0-2) /HPF Urine Bacteria None Seen (None Seen) Hyaline Casts 0-2 (0-2) /LPF Influenza Type A (PCR) NEGATIVE (Negative) Influenza Type B (PCR) NEGATIVE (Negative) RSV RNA Qual (PCR) NEGATIVE (Negative) SARS-CoV-2 RNA (RT-PCR) NEGATIVE (Negative) S. pyogenes GrpA ALVARADO Negative (Negative) External Record Review External record reviewed: Outpatient record, Prior outpatient labs and Prior outpatient radiology Discharge Plan Discharge Clinical Impression: Bartholin's gland cyst Patient Disposition: Home, Self-Care Instructions: Bartholin Cyst (ED) Additional Instructions: 1. Complete the entire course of antibiotics. 2. Please call the office of Dr. Quinonez in the morning. Return to the ER for any worsening symptoms. Prescriptions: New amoxicillin-pot clavulanate 875-125 mg tablet 1 tab PO BID 5 Days Qty: 10 0RF No Action metronidazole [Metrogel Vaginal] 0.75 % gel 1 appful vaginal BEDTIME 5 Days Qty: 70 0RF amoxicillin-pot clavulanate [Augmentin] 875-125 mg tablet 1 tab PO Q12H Qty: 20 0RF sulfamethoxazole-trimethoprim [Bactrim DS] 800-160 mg tablet 1 tab PO Q12H Qty: 14 0RF oxycodone-acetaminophen [Percocet] 5-325 mg tablet 1 tab PO TID PRN (Reason: pain) Qty: 12 0RF naproxen 500 mg tablet 500 mg PO BID PRN (Reason: pain) Qty: 20 0RF acetaminophen [Tylenol Extra Strength] 500 mg tablet 1,000 mg PO QID PRN (Reason: fever or pain) Qty: 14 0RF oxycodone 5 mg tablet 5 mg PO BID PRN (Reason: pain) Qty: 14 0RF cephalexin 500 mg capsule 500 mg PO Q6H 7 Days Qty: 28 0RF doxycycline hyclate 100 mg tablet 100 mg PO BID 7 Days Qty: 14 0RF ketorolac 10 mg tablet 10 mg PO Q6H PRN (Reason: pain) 5 Days Qty: 20 0RF Rx Instructions: Patient received Toradol in the emergency room. ibuprofen 600 mg tablet 600 mg PO Q8H PRN (Reason: pain) Qty: 20 0RF cyclobenzaprine 10 mg tablet 10 mg PO TID PRN (Reason: muscle spasm) Qty: 15 0RF acetaminophen [Tylenol] 325 mg capsule 650 mg PO Q8H PRN (Reason: pain) Qty: 30 0RF ibuprofen 800 mg tablet 800 mg PO Q8H PRN (Reason: pain) Qty: 30 0RF Referrals: Mason Quinonez MD [Physician] -
[2023-04-03 20:17] LABS: MANUAL DIFF FLAG NO
[2023-04-03 20:25] LABS: IDNOW Serial# 08D9AD1C; Strep A Nucleic Acid Negative (Negative)
[2023-04-03 20:30] LABS: Basophils Absolute Auto 0.1 X10*3/uL (0.0-0.2); Basophils Percent Auto 0.5 % (0-2); Eosinophils Percent Auto 0.3 % (0-4); Hemoglobin 12.2 g/dl (12.0-16.0); Imm Gran Abs Auto 0.04 X10*3/uL (0.00-0.03); Imm Gran Pct Auto 0.3 % (0.0-0.4); Lymphocytes Absolute Auto 2.6 X10*3/uL (1.2-4.9); Lymphocytes Percent Auto 19.9 % (20-40); Mean Corpuscular HGB Conc 30.5 g/dl (31.0-35.0); Mean Corpuscular Volume 75.3 fL (80.0-98.0); Mean Platelet Volume 10.8 fL (9.4-12.3); Monocytes Absolute Auto 0.9 X10*3/uL (0.1-1.2); Monocytes Percent Auto 7.1 % (2-11); Neutrophils Absolute Auto 9.2 x10*3/uL (2.0-8.3); Neutrophils Percent Auto 71.9 % (45-73); Platelet Count 292 X10*3/uL (160-400); Red Blood Count 5.31 X10*6/uL (4.20-5.50); Red Cell Distribution Width 14.1 % (11.0-16.0); White Blood Count 12.9 X10*3/uL (4.8-10.8)
[2023-04-03 20:43] LABS: Alanine Aminotransferase 17 U/L (0-31); Albumin Level 4.2 g/dL (3.5-5.0); Alkaline Phosphatase 53 U/L (39-117); Anion Gap 14 (12-20); Aspartate Amino Transferase 17 U/L (5-31); Bilirubin Direct 0.3 mg/dL (0.0-0.5); Bilirubin Total 0.8 mg/dL (0.0-1.0); Blood Urea Nitrogen 13 mg/dL (9-16); Calcium 9.5 mg/dL (8.4-10.2); Carbon Dioxide 25 mmol/L (22-29); Chloride 104 mmol/L (96-108); Creatinine Clr Calc Pharmacy 88.7; Estimated Glomerular Filt Rate > 60; Glucose Random 108 mg/dL (60-115); HCG Quantitative < 2 mIU/mL; Potassium 3.7 mmol/L (3.3-5.1); Sodium 139 mmol/L (135-145); Total Protein 7.7 g/dL (6.5-8.0)
[2023-04-03 21:04] LABS: Influenza A PCR NEGATIVE (Negative); Influenza B PCR NEGATIVE (Negative); Resp Syncy Virus RNA Qual PCR NEGATIVE (Negative); SARS COV2 PCR INHOUSE NEGATIVE (Negative)
[2023-04-04 03:44] VITALS: BP 135/73; PULSE 78; RESP 17; TEMP 37.1
[2023-04-04 03:54] LABS: Appearance Urine Clear; Color Urine Yellow; Glucose Urine UA Negative (Negative); Leukocyte Esterase Urine Small (1+) (Negative); Nitrite Urine Negative (Negative); PH 6.5 (5.0-9.0); Specific Gravity - Urine >= 1.030 (1.005-1.025); UMIC TRIGGER UACC YES; Urine Blood Negative (Negative); Urine Ketones 15 mg/dL (Negative); Urine Protein Negative (Neg-Trace)
[2023-04-04 04:09] LABS: Bacteria Urine None Seen (None Seen); Hyaline Casts Urine 0-2 /LPF (0-2); RBC Urine 0-2 /HPF (0-2); UACC Culture Trigger YES; WBC Urine 0-5 /HPF (0-5)
[2023-04-04] MEDS: Ibuprofen 400 MG TABLET PO (06:11)
[2023-04-04] MEDS: Acetaminophen 325 MG TABLET 975 MG PO (06:11)
[2023-04-04 06:24] LABS: CT PCR NOT DETECTED (Not Detect.); NG PCR NOT DETECTED (Not Detect.)
== END 2023-04-04 07:28 | disposition home or self-care (01) ==
PROVIDERS: Physician Assistant Medical; Emergency Provider Student in an Organized Health Care Education/Training Program
DX: N75.0 Cyst of Bartholin's gland (principal); J02.9 Acute pharyngitis, unspecified; R10.9 Unspecified abdominal pain; Z79.899 Other long term (current) drug therapy; Z20.822 Contact with and (suspected) exposure to COVID-19; Z20.828 Contact with and (suspected) exposure to other viral communicable diseases
CPT/HCPCS: 0241U; 0353U; 36415; 80048; 80076; 81001; 84702; 85025; 87086; 87651; 99283; 99284

== ENCOUNTER 2025-01-21 10:20 | Emergency (ER) | payer OTHER, SELFPAY ==
--- NOTE | ~2025-01-21 | CT_ITS ---
EXAMINATION: CT ABDOMEN PELVIS WITHOUT IV CONTRAST HISTORY: flank pain, hx of stones COMPARISON: Comparison is made with the prior examination dated 05/07/2020. TECHNIQUE: CT scan of the abdomen and pelvis was performed without contrast using standard departmental protocol. Coronal and sagittal reformatted images were generated and reviewed. Oral contrast material was not administered per department protocol. This CT exam was performed with one or more of the following dose reduction techniques: automated exposure control, adjustment of the mA and/or kV according to patient size, use of iterative reconstruction technique. DLP: 530 mGy-cm FINDINGS: LOWER CHEST: The visualized lung bases are clear. There is no pleural effusion. CARDIOVASCULATURE: The heart is normal in size. There is no pericardial effusion. LIVER: The liver is normal in size and contour. The liver has an unremarkable unenhanced appearance. GALLBLADDER / BILE DUCTS: The gallbladder is unremarkable. There is no intra or extrahepatic biliary ductal dilatation. SPLEEN: The spleen is normal in size and has an unremarkable unenhanced appearance. PANCREAS: The pancreas has an unremarkable unenhanced appearance. ADRENAL GLANDS: Unremarkable. KIDNEYS/RETROPERITONEUM: No renal or ureteral calculi are identified. There is no hydronephrosis or hydroureter. LYMPH NODES: No retroperitoneal lymphadenopathy is identified in the abdomen or pelvis. VASCULATURE: The abdominal aorta is normal in caliber. MESENTERY/PERITONEUM: There is a small amount of free fluid in the cul-de-sac. No masses. There is no free intraperitoneal gas. STOMACH: The stomach is collapsed, limiting evaluation. SMALL BOWEL: The small bowel is normal in caliber. COLON: The colon is unremarkable. APPENDIX: Normal. URINARY BLADDER/PELVIC ORGANS: The urinary bladder is collapsed, limiting evaluation. The uterus and ovaries have an unremarkable unenhanced appearance. The previously seen peritoneal fluid collections are largely excluded from the [id number]. BONES / SOFT TISSUES: No suspicious bony or soft tissue abnormalities. CT/CT abdomen pelvis wo IV con IMPRESSION: No evidence of nephrolithiasis or ureteral obstruction. Electronically signed by: Jayme Wilcox MD 01/21/2025 12:30 PM EDT
[2025-01-21 10:23] VITALS: BP 124/61; PULSE 61; RESP 17; TEMP 36.6; O2SAT 98; BMI 30.1
[2025-01-21 10:51] LABS: MANUAL DIFF FLAG NO
[2025-01-21 10:53] LABS: Hematocrit 35.9 % (37.0-47.0); Hemoglobin 11.4 g/dl (12.0-16.0); Imm Gran Abs Auto 0.02 X10*3/uL (0.00-0.03); Imm Gran Pct Auto 0.2 % (0.0-0.4); Lymphocytes Absolute Auto 2.0 X10*3/uL (1.2-4.9); Mean Corpuscular HGB Conc 31.8 g/dl (31.0-35.0); Mean Corpuscular Hemoglobin 22.6 pg (27.0-33.0); Mean Corpuscular Volume 71.2 fL (80.0-98.0); NRBC Abs Auto 0.000 X10*3/uL (0.0-0.012); NRBC Pct Auto 0.0 /100WBC (0.0-0.2); Platelet Count 331 X10*3/uL (160-400); Red Blood Count 5.04 X10*6/uL (4.20-5.50); White Blood Count 8.3 X10*3/uL (4.8-10.8)
[2025-01-21 10:58] LABS: Appearance Urine Cloudy; Glucose Urine UA Negative (Negative); PH 7.5 (5.0-9.0); Specific Gravity - Urine 1.020 (1.005-1.025); UACC Culture Trigger YES; UMIC TRIGGER UACC YES
[2025-01-21 11:15] LABS: Alanine Aminotransferase 17 U/L (0-31); Albumin Level 4.1 g/dL (3.5-5.0); Alkaline Phosphatase 52 U/L (39-117); Anion Gap 10 (12-20); Aspartate Amino Transferase 17 U/L (5-31); Blood Urea Nitrogen 13 mg/dL (9-16); Calcium 8.5 mg/dL (8.4-10.2); Carbon Dioxide 26 mmol/L (22-29); Chloride 107 mmol/L (96-108); Creatinine Clr Calc Pharmacy 97.8; Estimated Glomerular Filt Rate > 60; Lipase 17 U/L (8-78); Magnesium 1.9 mg/dL (1.6-2.6); Potassium 3.8 mmol/L (3.3-5.1); Sodium 139 mmol/L (135-145); Total Protein 7.0 g/dL (6.5-8.0)
--- NOTE | 2025-01-21 11:42 | ED_ITS ---
HPI - General Adult General Chief complaint: Abdominal Pain Stated complaint: Lower abd/back pain, vomiting Time Seen by Provider: 01/21/25 11:42 Source: patient Mode of arrival: ambulatory Limitations: no limitations History of Present Illness ED Provider: Anna Dubon PA-C HPI narrative: Patient is a 29 year old assigned female at with a history of kidney stones presenting to the emergency department today with bilateral flank pain with painful urination. Patient states that over the last day she has had bilateral flank pain with increased urinary frequency, urgency, and pain with urination. Patient states that she has also felt nauseous and vomited once last night. Patient denies any dizziness, lightheadedness, abdominal pain, fever, chills, blurry vision, double vision, loss of vision, chest pain, difficulty breathing, shortness of breath, back pain, night sweats, blood in her urine or stool, syncope or a near syncopal episode, recent trauma or falls, bowel incontinence, bladder incontinence, or any other complaints at this time. Onset (ago): day(s) Relieving factors: none Exacerbating factors: none Associated symptoms: nausea/vomiting Treatments prior to arrival: none Related Data Previous Rx's ?Medication ?Instructions ?Recorded amoxicillin 875 mg-potassium 1 tab PO Q12H #20 tabs clavulanate 125 mg tablet (Augmentin) naproxen 500 mg tablet 500 mg PO BID PRN pain #20 t abs 05/02/20 oxycodone-acetaminophen 5 mg-325 1 tab PO TID PRN pain #12 tabs 05/02/20 mg tablet (Percocet) sulfamethoxazole 800 1 tab PO Q12H #14 tabs 05/02 mg-trimethoprim 160 mg tablet (Bactrim DS) acetaminophen 325 mg capsule 650 mg (2 x 325 mg) PO Q8 H PRN 05/09/20 (Tylenol) pain #30 caps ibuprofen 800 mg tablet 800 mg PO Q8H PRN pain #30 t abs 05/09/20 metronidazole 0.75 % (37.5 mg/5 1 appful vaginal BEDTI ME 5 days 05/11/20 gram) vaginal gel (Metrogel #70 grams Vaginal) acetaminophen 500 mg tablet 1,000 mg (2 x 500 mg) PO Q ID PRN 12/26/20 (Tylenol Extra Strength) fever or pain #14 tabs oxycodone 5 mg tablet 5 mg PO BID PRN pain #14 tab s 12/26/20 ketorolac 10 mg tablet 10 mg PO Q6H PRN pain 5 days #20 04/26/21 tabs cephalexin 500 mg capsule 500 mg PO Q6H 7 days #28 cap s 08/24/22 doxycycline hyclate 100 mg tablet 100 mg PO BID 7 days #14 tabs 08/24/22 cyclobenzaprine 10 mg tablet 10 mg PO TID PRN muscle s pasm #15 03/02/23 tabs ibuprofen 600 mg tablet 600 mg PO Q8H PRN pain #20 t abs 03/02/23 amoxicillin 875 mg-potassium 1 tab PO BID 5 days #10 t abs 04/04/23 clavulanate 125 mg tablet cefuroxime axetil 250 mg tablet 250 mg PO BID 7 days # 14 tabs 01/21/25 doxycycline hyclate 100 mg tablet 100 mg PO BID 7 days #14 tabs 01/21/25 ondansetron 4 mg disintegrating 4 mg PO Q8H 3 days #9 tabs 01/21/25 tablet Allergies Allergy/AdvReac Type Severity Reaction Status Date / Time Penicillins Allergy Hives Verified 01/21/25 10:25 Review of Systems 2 Constitutional: Constitutional: Reports no additional constitutional complaints, Denies chills, Denies fever(s) and Denies night sweats Eyes: Eyes: Reports no additional eye complaints, Denies blurry vision, Denies change in vision, Denies diplopia, Denies eye discharge, Denies loss of vision and Denies eye pain ENT: Denies dizziness Cardiovascular: Cardiovascular: Reports no additional cardiovascular complaints, Denies chest pain, Denies lightheadedness, Denies Loss of Consciousness and Denies dyspnea Respiratory: Respiratory: Reports no additional respiratory complaints and Denies dyspnea Gastrointestinal: Gastrointestinal: Reports no additional gastrointestinal complaints, Denies abdominal pain, Denies melena, Denies hematochezia, Denies change in bowel habits and Denies change in stool character Genitourinary: Genitourinary: Denies hematuria, Denies urinary frequency, Reports dysuria, Reports flank pain, Denies urinary incontinence, Denies urinary hesitancy and Reports urinary urgency Musculoskeletal: Musculoskeletal: Reports no additional musculoskeletal complaints, Denies numbness and Denies tingling Neurologic: Denies dizziness, Denies loss of vision, Denies numbness and Denies tingling Psychiatric: Psychiatric: Reports no additional psychiatric complaints Endocrine: Endocrine: Reports no additional endocrine complaints Hematologic/Lymphatic: Hematologic/Lymphatic: Reports no additional hematologic/lymphatic complaints Allergic/Immunologic: Allergic/Immunologic: Reports no additional allergic/immunologic complaints PMFSH Past Medical History Attestation statement: The following information was validated with the patient. Source: old records reviewed and nursing notes reviewed Medical History No known health problems Surgical History Hx of tubal ligation Hx of section Family History Family History Maternal Grandmother Breast cancer Social History Social History Alcohol intake: current Alcohol intake frequency: a few times a week Alcohol type: hard liquor Patient Tobacco Use Status: Never used Tobacco Smoked in Last 30 Days: No Use of substances other than those prescribed or required for medical reasons: No Advance Directives: No Advance Directives Information Provided: Yes Do you have a plan to hurt others: No Plan Patient : No Physical Exam ED Vital Signs: Vital Signs - 24 hr 01/21/25 10:23 01/21/25 11:47 Temperature 97.8 F Pulse Rate 61 58 Respiratory Rate 17 18 Blood Pressure 124/61 138/69 Pulse Oximetry 98 99 Oxygen Delivery Method Room Air Room Air BMI result Body Mass Index 30.1 Const General: cooperative, no acute distress, alert and awake Nutritional Appearance: well nourished Orientation/consciousness: patient oriented x3 HENMT Head: Yes normal to inspection and Yes atraumatic Ears: hearing grossly normal bilaterally and external ears normal General nose exam: Normal external nose present, no nasal discharge noted and no epistaxis Face and sinus: Yes normal facial exam, No abrasion and No laceration Mouth: Normal oral and palatal mucosa present, no drooling and no muffled voice Eyes General: appearance normal, both eyes and all related structures Periorbital: periorbital findings normal Eyelids: Yes eyelids normal Conjunctivae: conjunctivae normal Pupils: Equal, round and reactive pupils present EOM: EOMs intact bilaterally Neck Neck: Yes normal visual inspection, Yes full ROM and Yes no lymphadenopathy Resp Effort & Inspection: normal respiratory effort and able to speak in complete sentences Neuro General: patient oriented x3, moves all extremities and CN's II-XI intact bilaterally Cranial nerves: Yes Equal, round and reactive pupils present Cognition (Neuro): normal cognition Extrem General: Yes normal to inspection, Yes full ROM and Yes capillary refill normal Psych Appearance: grossly normal Mental Status: mental status grossly normal Affect: normal affect Attitude: cooperative Thought process: Normal thought process present Thought content: Normal thought content present Insight: Good insight present (Psych) Medications Administered Discontinued Medications Generic Name Dose Route Start Last Admin Trade Name Freq PRN Reason Stop Dose Admin Ceftriaxone Sodium 1 gm 01/21/25 11:56 01/21/25 12:30 Ceftriaxone Sodium 1 Gm Vial IVPUSH 01/21/25 11:57 1 gm ONCE ONE Administration Ketorolac Tromethamine 15 mg 01/21/25 12:33 01/21/25 12:38 Ketorolac Tromethamine 15 Mg/Ml Vial IVPUSH 01/21/25 12:34 15 mg ONCE ONE Administration Ondansetron HCl 4 mg 01/21/25 12:33 01/21/25 12:38 Ondansetron Hcl 4 Mg/2 Ml Vial IVPUSH 01/21/25 12:34 4 mg ONCE ONE Administration Medical Decision Making Medical Decision Making [facility] Narrative: Patient is a 29 year old assigned female at with a history of kidney stones presenting to the emergency department today with bilateral flank pain with painful urination. Patient's physical exam was unremarkable. Patient's blood work was unremarkable. Patient's urine showed evidence of a UTI. Patient's CT abd/pelvis showed no acute process. Patient had expressed some STI concern - testing ordered and now pending. I explained my physical exam findings as well as all test results to the patient. I answered all questions asked by the patient. Patient received IV morphine and Zofran which, upon re-evaluation, she stated it helped her symptoms some. Patient was also given IV ceftriaxone and PO Doxycycline and STI prophylaxis. Patient will be prescribed cefuroxime and doxy to cover for possible STI as well as UTI. I stressed the importance of the patient taking her medication as directed (either prescribed or as the over the counter packaging recommends). I stressed the importance of the patient following up with her primary care provider. I stressed the importance of the patient returning to the emergency department immediately if her symptoms were to worsen or if she were to develop any dizziness, shortness of breath, difficulty breathing, chest pain, blurry vision, loss of vision, nausea, vomiting, abdominal pain, fever, chills, back pain, or any other complaints. Patient verbalized agreement and understanding with this treatment plan and discharge. Differential Diagnosis Differential Diagnoses: The differential diagnosis associated with the presentation includes STI UTI Kidney stone Admission/Observation Consideration of admission/observation: Escalation of care including admission/observation considered Patient would have been admitted to the hospital had her work up had any findings where hospital admission was appropriate and her clinical presentation warranted hospital admission. Lab Data [facility] Lab Attestation statement: I reviewed the patient's lab results. My interpretation of these results are in the [facility] Rationale portion of this note. 01/21/25 10:47 01/21/25 10:47 Labs: Lab Results 01/21/25 01/21/25 Range/Units 10:44 10:47 WBC 8.3 (4.8-10.8) X10*3/uL RBC 5.04 (4.20-5.50) X10*6/uL Hgb 11.4 L (12.0-16.0) g/dl Hct 35.9 L (37.0-47.0) % MCV 71.2 L (80.0-98.0) fL MCH 22.6 L (27.0-33.0) pg MCHC 31.8 (31.0-35.0) g/dl RDW 14.6 (11.0-16.0) % Plt Count 331 (160-400) X10*3/uL MPV 10.2 (9.4-12.3) fL Immature Gran % (Auto) 0.2 (0.0-0.4) % Neut % (Auto) 67.5 (45-73) % Lymph % (Auto) 24.6 (20-40) % [place] % (Auto) 6.5 (2-11) % Eos % (Auto) 0.8 (0-4) % Baso % (Auto) 0.4 (0-2) % Lymph # (Auto) 2.0 (1.2-4.9) X10*3/uL [place] # (Auto) 0.5 (0.1-1.2) X10*3/uL Eos # (Auto) 0.1 (0.0-0.4) X10*3/uL Baso # (Auto) 0.0 (0.0-0.2) X10*3/uL Abs Immat Gran (auto) 0.02 (0.00-0.03) X10*3/uL Absolute Neuts (auto) 5.6 (2.0-8.3) x10*3/uL Absolute Nucleated RBC 0.000 (0.0-0.012) X10*3/uL Nucleated RBC % (auto) 0.0 (0.0-0.2) /100WBC Sodium 139 (135-145) mmol/L Potassium 3.8 (3.3-5.1) mmol/L Chloride 107 (96-108) mmol/L Carbon Dioxide 26 (22-29) mmol/L Anion Gap 10 L (12-20) BUN 13 (9-16) mg/dL Creatinine 0.85 (0.5-1.4) mg/dL Estim Creat Clear Calc 97.8 Estimated GFR > 60 Random Glucose 97 (60-115) mg/dL Calcium 8.5 D (8.4-10.2) mg/dL Magnesium 1.9 (1.6-2.6) mg/dL Total Bilirubin 0.5 (0.0-1.0) mg/dL Direct Bilirubin 0.2 (0.0-0.5) mg/dL AST 17 (5-31) U/L ALT 17 (0-31) U/L Alkaline Phosphatase 52 (39-117) U/L Total Protein 7.0 (6.5-8.0) g/dL Albumin 4.1 (3.5-5.0) g/dL Lipase 17 (8-78) U/L Beta HCG, Quant < 2 mIU/mL Urine Color Dark Yellow Urine Appearance Cloudy Urine pH 7.5 (5.0-9.0) Ur Specific [place] 1.020 (1.005-1.025) Urine Protein 100 (2+) H (Neg-Trace) mg/dL Urine Glucose (UA) Negative (Negative) mg/dL Urine Ketones Negative (Negative) mg/dL Urine Blood Large (3+) H (Negative) Urine Nitrite Negative (Negative) Ur Leukocyte Esterase Large (3+) H (Negative) Urine RBC >20 H (0-2) /HPF Urine WBC >50 H (0-5) /HPF Ur Squamous Epith Cells 3-5 (0-2) /HPF Urine Bacteria None Seen (None Seen) Hyaline Casts 0-2 (0-2) /LPF Ur N gonorrhoeae DNA (PCR) NOT DETECTED (Not Detect.) Ur Chlamydia DNA (PCR) NOT DETECTED (Not Detect.) Independent Interpretation I performed an independent interpretation of an: CT Scan Interpretation: My interpretation is in agreement with the radiologist's impression of this imaging study. L Report Number: [id number]: Total DLP = 530.00 mGy-cm EXAMINATION: CT ABDOMEN PELVIS WITHOUT IV CONTRAST HISTORY: flank pain, hx of stones COMPARISON: Comparison is made with the prior examination dated 05/07/2020. TECHNIQUE: CT scan of the abdomen and pelvis was performed without contrast using standard departmental protocol. Coronal and sagittal reformatted images were generated and reviewed. Oral contrast material was not administered per department protocol. This CT exam was performed with one or more of the following dose reduction techniques: automated exposure control, adjustment of the mA and/or kV according to patient size, use of iterative reconstruction technique. DLP: 530 mGy-cm FINDINGS: LOWER CHEST: The visualized lung bases are clear. There is no pleural effusion. CARDIOVASCULATURE: The heart is normal in size. There is no pericardial effusion. LIVER: The liver is normal in size and contour. The liver has an unremarkable unenhanced appearance. GALLBLADDER / BILE DUCTS: The gallbladder is unremarkable. There is no intra or extrahepatic biliary ductal dilatation. SPLEEN: The spleen is normal in size and has an unremarkable unenhanced appearance. PANCREAS: The pancreas has an unremarkable unenhanced appearance. ADRENAL GLANDS: Unremarkable. KIDNEYS/RETROPERITONEUM: No renal or ureteral calculi are identified. There is no hydronephrosis or hydroureter. LYMPH NODES: No retroperitoneal lymphadenopathy is identified in the abdomen or pelvis. VASCULATURE: The abdominal aorta is normal in caliber. MESENTERY/PERITONEUM: There is a small amount of free fluid in the cul-de-sac. No masses. There is no free intraperitoneal gas. STOMACH: The stomach is collapsed, limiting evaluation. SMALL BOWEL: The small bowel is normal in caliber. COLON: The colon is unremarkable. APPENDIX: Normal. URINARY BLADDER/PELVIC ORGANS: The urinary bladder is collapsed, limiting evaluation. The uterus and ovaries have an unremarkable unenhanced appearance. The previously seen peritoneal fluid collections are largely excluded from the [id number]. BONES / SOFT TISSUES: No suspicious bony or soft tissue abnormalities. CT/CT abdomen pelvis wo IV con IMPRESSION: No evidence of nephrolithiasis or ureteral obstruction. Electronically signed by: Jayme Wilcox MD 01/21/2025 12:30 PM EDT RP Dictated By: Jayme Wilcox MD Signed By: Electronically signed by Jayme Wilcox MD 01/21/25 1230 Radiology Impression Discussion of test interpretation with radiology: I have reviewed the radiologist's reading. Prescription Management I considered prescription management with: Antibiotic (patient prescribed antibiotics as noted in the MDM Rationale portion of this note. ) Critical Care Time Critical Care Time Critical Care Time: Yes Total Critical Care Time: 33 Attestation: I spent 33 minutes of Critical Care Time with this patient. This does not include time spent on separately reported billable procedures. Discharge Plan Discharge Clinical Impression: Urinary tract infection Patient Disposition: Home, Self-Care Instructions: Urinary Tract Infection in Women (DC) Additional Instructions: Take your antibiotics as prescribed. Eat when taking your antibiotic however, AVOID dairy products. Additionally, avoid direct sunlight while on this medication. Follow up with your primary care provider. Return to the emergency department immediately if your symptoms worsen or if you develop any numbness, tingling, dizziness, shortness of breath, difficulty breathing, chest pain, blurry vision, loss of vision, nausea, vomiting, abdominal pain, fever, chills, back pain, or any other complaints. Please see the information below about our Patient Portal. If you are not yet enrolled in the [facility] Patient Portal, you will receive an enrollment email invitation following your visit to any [facility] care setting. You may also self-enroll in the Patient Portal by visiting our website: [email or web address] The following information is required to access the Patient Portal: - Your [facility] Medical Record Number - Your personal home email address (must match what is in your electronic medical record, Registration staff can assist with this) - Name - Date of Capabilities of the Patient Portal: - Message some providers - View upcoming appointments - Access your health summary, medical history, and visit history - View current conditions and allergies - View procedure and lab results - View your medications, including guidelines, side effects, and precautions - Complete pre-appointment questionnaires requested by your provider - Ready summary reports of your office visits and procedures To access the Patient Portal Mobile Teresa, follow these directions: - Search [employer] [facility] in the Teresa Store or Ide[employer] Store - Download the Teresa - Search for [facility] - Enter your login/password Prescriptions: New cefuroxime axetil 250 mg tablet 250 mg PO BID 7 Days Qty: 14 0RF doxycycline hyclate 100 mg tablet 100 mg PO BID 7 Days Qty: 14 0RF ondansetron 4 mg tablet,disintegrating 4 mg PO Q8H 3 Days Qty: 9 0RF No Action metronidazole [Metrogel Vaginal] 0.75 % gel 1 appful vaginal BEDTIME 5 Days Qty: 70 0RF amoxicillin-pot clavulanate [Augmentin] 875-125 mg tablet 1 tab PO Q12H Qty: 20 0RF sulfamethoxazole-trimethoprim [Bactrim DS] 800-160 mg tablet 1 tab PO Q12H Qty: 14 0RF oxycodone-acetaminophen [Percocet] 5-325 mg tablet 1 tab PO TID PRN (Reason: pain) Qty: 12 0RF naproxen 500 mg tablet 500 mg PO BID PRN (Reason: pain) Qty: 20 0RF acetaminophen [Tylenol Extra Strength] 500 mg tablet 1,000 mg PO QID PRN (Reason: fever or pain) Qty: 14 0RF oxycodone 5 mg tablet 5 mg PO BID PRN (Reason: pain) Qty: 14 0RF cephalexin 500 mg capsule 500 mg PO Q6H 7 Days Qty: 28 0RF doxycycline hyclate 100 mg tablet 100 mg PO BID 7 Days Qty: 14 0RF ketorolac 10 mg tablet 10 mg PO Q6H PRN (Reason: pain) 5 Days Qty: 20 0RF Rx Instructions: Patient received Toradol in the emergency room. ibuprofen 600 mg tablet 600 mg PO Q8H PRN (Reason: pain) Qty: 20 0RF cyclobenzaprine 10 mg tablet 10 mg PO TID PRN (Reason: muscle spasm) Qty: 15 0RF amoxicillin-pot clavulanate 875-125 mg tablet 1 tab PO BID 5 Days Qty: 10 0RF acetaminophen [Tylenol] 325 mg capsule 650 mg PO Q8H PRN (Reason: pain) Qty: 30 0RF ibuprofen 800 mg tablet 800 mg PO Q8H PRN (Reason: pain) Qty: 30 0RF Referrals: Group,[facility] [Primary Care Provider, Primary Care] Stand Alone Forms: Work/School Release Print Language: Armenian
[2025-01-21 11:47] VITALS: BP 138/69; PULSE 58; RESP 18; O2SAT 99
--- NOTE | 2025-01-21 12:05 | PC.NURSE ---
29 F presents to ED with abdominal pain, n/v, difficulty urinating x 1.5 weeks, concerns for kidney stones. A+OX4 and ambulatory. Pt denies CP or SOB, RR even and unlabored. Pt sts she doesn't drink much water because it makers her nauseous.
--- OUTSIDE RECORDS SUMMARY | 2025-01-21 12:17 | XMS_ITS | Clinical Summary ---
Author Organization [facility] Address [address] [place] [id number] Care Team Providers Care All [employer] Intelligence Name Role Phone Unknown Primary Care Provider +[id number] -0000 Allergies No known active allergies Encounters Date Type Department Care Team Description 10/27/2024 12:59 AM EDT - 10/27/2024 4:17 AM EDT Emergency [facility] Emergency Department [address] [place] [address] Discharge Disposition: Home or Self Care 10/27/2024 Travel from Last 3 Months Social History Tobacco Use Types Packs/Day Years Used Date Smoking Tobacco: Never Assessed Comments Unknown Sex and Gender Information Value Date Recorded Sex Assigned at Female 10/27/2024 1:04 AM EDT Legal Sex Female 12:51 AM EDT Gender Identity Female 10/27/2024 1:04 AM EDT Sexual Orientation Heterosexual (straight) 10/27 1:04 AM EDT Last Filed Vital Signs Vital Sign Reading Time Taken Comments Blood Pressure 136/74 10/27/2024 12:57 AM EDT Pulse 70 10/27/2024 12:57 AM EDT Temperature 35.7 C (96.2 F) 10/27/2024 12:57 AM EDT Respiratory Rate 15 10/27/2024 12:57 AM EDT Oxygen Saturation 98% 10/27/2024 12:57 AM EDT Inhaled Oxygen Concentration - - Weight - - Height - - Body Mass Index - - Plan of Treatment Health Maintenance Due Date Last Done Comments Hepatitis C Virus Screening 1993 HIV Screening 2006 DTaP/Tdap/Td Vaccines (1 - Tdap) 2012 Hepatitis B Vaccines (1 of 3 - 19+ 3-dose series) 2012 Pap Smear (Ages 21-65) 2014 COVID-19 Vaccine (2023-2 5 season) 2024 02/03/2021 Influenza Vaccine 01/22/2025 05/18/2022, 04/27/2022, 07/06/2020 HPV Vaccines Aged Out No longer eligi ble based on patient's age to complete this topic Pneumococcal Vaccine: Pediatric (0-5 Years) and At-Risk Patients (6 to 49 Years) Aged Out No longer eligible b ased on patient's age to complete this topic [place] [address] [place] [address] Care Teams All Source Intelligence Relationship Specialty Start Date End Date Unknown Unknow Provider Address PCP - General 10/27/24
--- OUTSIDE RECORDS SUMMARY | 2025-01-21 12:17 | XMS_ITS ---
Author Name [facility] Organization Unknown Encounters Encounter Type Encounter Reason Primary Diagnosis Location Date Emergency Lip Swelling Lip Swelling [facility] 10/27/2024 Care Team Organization Name Specialty Phone Email Start Date End [employer] 10/27/2024 11/25/2024 [employer] 10/27/2024
--- OUTSIDE RECORDS SUMMARY | 2025-01-21 12:17 | XMS_ITS | Clinical Summary ---
Author Organization [facility] Address [address] [place] [address] Phone Care Team Providers Care Process Control Engineer Name Role Phone Aracelis Armas MD Primary Care Pr ovider Allergies Active Allergy Reactions Criticality Noted Date Comments Penicillin Hives Medium 06/11/2024 Medications busPIRone (BUSPAR) 5 mg tablet Take 1 tablet (5 mg total) by mouth 2 (two) times a day. 60 tablet 2 5 Active hydrOXYzine HCL (ATARAX) 10 mg tablet Take 1 tablet (10 mg total) by mouth every 8 (eight) hours if needed for anxiety. Medication can cause drowsiness, do not drive/operate machinery when taking 30 tablet 1 5 Active carbamide peroxide (DEBROX) 6.5 % otic solution Administer 5 drops into each ear 2 (two) times a day for 7 days. 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 Discussed conservative treatment with sitz baths vs. I&D in the office vs. I&D under anesthesia vs. Bartholin marsupialization for more definitive management as this cyst has recurred 3x. She is most interested in the latter. The procedure was described. The risks/benefits of the procedure were reviewed including, but not limited to, infection requiring antibiotic therapy, blood loss, injury to other body organs requiring subsequent surgery to repair the injury, risk of treatment failure, reactions to anesthesia/medications. She understands all of this and agrees to proceed. All questions answered. Generalized muscular abdominal pain 02/10/2019 Overview (06/26/2024): Last Assessment & Plan: Pain appears to be related to scarring involving abdominal musculature at the attachment to the pubic bone. Recommend PT. Referral placed today. Anxiety 01/21/2019 Encounters Date Type Department Care Team Description 01/01/2025 Telephone Adult Medicine [address] [phone] Rukhsana Enciso PA Dx Review (48Hr Holter Order Review) 12/30/2024 3:00 PM EDT Office Visit Adult Medicine [address] [address] Rukhsana Enciso PA Annual physical exam (Primary Dx); Anxiety; Atypical chest pain; Chest pain, unspecified type; Palpitations; Family history of blood clots; Iron deficiency anemia, unspecified iron deficiency anemia type; Bilateral impacted cerumen 12/14/2024 3:30 PM EDT Office Visit [facility] [address] [place] [address] Janet Holbrook CNM Encounter for gynecological examination without abnormal finding (Primary Dx); Venereal disease screening; Encounter for screening for viral disease; Incisional pain 11/27/2024 Telephone Adult Medicine [address] [phone] Aracelis Armas MD TB Test 10/27/2024 4:49 AM EDT - 10/27/2024 10:57 AM EDT Emergency [facility] Emergency [address] [place] [phone] Discharge Disposition: Home or Self Care from Last 3 Months Immunizations Name Administration Dates Next Due HPV 9-valent (Gardisil) 9yo to less than 46yo 01/21/2019,01/11/2016 Influenza Quadravalent, MDCK , 0.5ml, preservative free (Flucelvax) 6mo and older 04/27/2022,07/06/2020 Influenza Whole 04/16/2012 Influenza, Unspecified 05/18/2022 PPD Test 01/21/2019,01/08/2018,05/26/2014 Tdap Tetanus diptheria acell ular pertussis (Boostrix; Adacel) 7yo and older 08/11/2015,11/22/2012 Surgical History Surgery Date Site/Laterality Comments SECTION 11/22/2017 PROCEDURE: RI DELIVERY ONLY; COMMENT: third TUBAL LIGATION 11/22/2017 PROCEDURE: HISTORICAL TUBAL LIGATION Medical History Medical History Date Comments Migraine DX:Migraine Anxiety and depression DX:Anxiet y and depression Family History Medical History Relation Name Comments No Known Problems Father No Known Problems Maternal Grandfather Breast cancer Maternal Grandmother Lung c ancer Diabetes Maternal Grandmother Lung cancer Maternal Grandmother No Known Problems Mother No Known Problems Paternal Grandfather Breast cancer Paternal Grandmother Diabetes Paternal Grandmother No Known Problems Sister x 4 health y sisters Coronary artery disease Neg Hx Relation Name Status Comments Father Alive Maternal Grandfather Alive Maternal Grandmother Alive Mother Alive Paternal Grandfather Alive Paternal Grandmother Sister Alive Social History Tobacco Use Types Packs/Day Years Used Date Smoking Tobacco: Never Smokeless Tobacco: Never Tobacco Cessation:Counseling Given: Not Answered Alcohol Use Standard Drinks/Week Comments Yes 0 (1 standard drink = 0.6 oz pur e alcohol) Housing Instability Answer Date Recorde d Are you worried that in the next 2 months you may not have stable housing? No 12/30/2024 Food Access & Nutrition Answer Date Rec orded Do you have access to a vari ety of food including fruits and vegetables? Yes 12/30/2024 Access to Healthcare Answer Date Record ed Within the last 3 months, jeffery silva many times did you visit the emergency department for your medical care? 4 12/30/2024 Health Literacy Answer Date Recorded How often do you need to hav e someone help you when you read instructions, pamphlets, or other written material from your doctor or pharmacy? Never 12/30/2024 Caregiver: How often do you need to have someone help you when you read instructions, pamphlets, or other written material from your doctor or pharmacy? Not on file 12/30/2024 Financial Risk Answer Date Recorded How hard is it for you to pa y for the very basics like food, housing, medical care, and air conditioning / heating? Hard 12/30/2024 Transportation Answer Date Recorded Has the lack of transportati on kept you from meetings, work, or from getting things needed for daily living? No Has the lack of transportati on kept you from medical appointments or from getting medications? No 12/30/2024 Social Isolation Answer Date Recorded How often do you feel lonely or isolated from th ose around you? Always 12/30/2024 Food Risk Answer Date Recorded Within the past 12 months we worried whether our food would run out before we got money to buy more. Sometimes true 025 Within the past 12 months th e food we bought just didn't last and we didn't have money to get more. Often true 12/30/2024 Dependent Care Answer Date Recorded Do you need help finding or paying for care for your loved ones. For example, director child development center or elderly care for an older adult? No 12/30/2024 Education Answer Date Recorded Do you think completing more education or training, like finishing a GED, going to college, or learning a trade, would be helpful for you? No 12/30/2024 Employment and Income Answer Date Recor ded During the last four weeks, have you been actively looking for work? Yes 12/30/2024 Living Situation Answer Date Recorded What is your living situation? 0 12/30/2024 Comments No Sex and Gender Information Value Date Recorded Sex Assigned at Female 08/23/2024 12:12 PM EST Legal Sex Female 5:38 AM EST Gender Identity Female 08/23/2024 12:12 PM EST Sexual Orientation Straight 08/23/2024 12 :12 PM EST Obstetrics History Para Term AB IAB SAB Ectopic Multiple Livin g Live Births 3 3 3 3 3 Date Outcome GA Total Labor Labor/2nd/3rd Weight Sex Type Anes PTL Emilia A1 A5 Name Clin Term CS-Un spec Living Term CS-Un spec Living Comments:System Genera missy. Please review and update details. Term CS-Un spec Living Comments:System Genera missy. Please review and update details. Last Filed Vital Signs Vital Sign Reading Time Taken Comments Blood Pressure 122/60 12/30/2024 3:30 PM EDT Pulse 63 12/30/2024 3:30 PM EDT Temperature 36.3 C (97.3 F) 12/30/2024 3:30 PM EDT Respiratory Rate 14 12/30/2024 3:30 PM EDT Oxygen Saturation 97% 12/30/2024 3:30 PM EDT Inhaled Oxygen Concentration - - Weight 79.8 kg (176 lb) 12/30/2024 3:30 PM EDT Height 162.6 cm (5' 4 ) 12/30/2024 3:30 PM EDT Body Mass Index 30.21 12/30/2024 3:30 PM EDT Plan of Treatment Upcoming Encounters Date Type Department Care Team (Late st Contact Info) Description 01/25/2025 1:15 PM EDT Ancillary Procedure [facility] - [facility] [address] [address] 02/01/2025 10:00 AM EDT Ancillary Procedure [facility] Cardiology [facility] - [facility] [address] [address] 03/11/2025 11:00 AM EDT Office Visit [facility] Hematology Oncology [address] [place] [phone] Keiko Martinez, DO [address] [place] [address] Health Maintenance Due Date Last Done Comments Hepatitis B Vaccines (1 of 3 - 19+ 3-dose series) 2012 HPV Vaccines (3 - 3-dose series) 04/15/2019 01/21/2019, 01/11/2016 COVID-19 Vaccine (3 - 2023- season) 2024 04/27/2022, 02/03/2021 Influenza Vaccine (#1) 2025 2, 04/27/2022, 07/06/2020, Additional history exists DTaP,Tdap,and Td Vaccines (3 - Td or Tdap) 08/11/2025 08/11/2015, 11/22/2012 Social Influencers of Health Screening 12/30/2025 12/30/2024 Cervical Cancer Screening: Pap Smear 08/21/2026 08/22/2023, 08/22/2023 Cholesterol Screening (Lipid Panel) 12/30/2029 12/30/2024, 06/12/2022 HIV Screening Completed 12/14/2024, 03/07/2021 Hepatitis C Screening Completed 12/14/2024, 021 Depression Screening Completed 12/30/2024 HIB Vaccines Aged Out No longer eligi ble based on patient's age to complete this topic Hepatitis A Vaccines Aged Out No long er eligible based on patient's age to complete this topic IPV Vaccines Aged Out No longer eligi ble based on patient's age to complete this topic MMR Vaccines Aged Out No longer eligi ble based on patient's age to complete this topic Meningococcal ACWY Vaccine Aged Out N o longer eligible based on patient's age to complete this topic Meningococcal B Vaccine Aged Out No l onger eligible based on patient's age to complete this topic Pneumococcal Vaccine: Pediatrics (0 to 5 Years) and At-Risk Patients (6 to 49 Years) Aged Out No longer eligible based on patient's age to complete this topic RSV Immunization Patients Under 20 months Aged Out No longer eligible based on patient's age to complete this topic Varicella Vaccines Aged Out No longer eligible based on patient's age to complete this topic Procedures Procedure Name Priority Date/Time Associated Diagnosis Comments CBC WITH AUTO DIFFERENTIAL Routine 12/30/2024 4:30 PM EDT Annual physical exam CBC AND DIFFERENTIAL Routine 12/30/2024 4:30 PM EDT Annual physical exam COMPREHENSIVE METABOLIC PANEL Routine 12/30/2024 4:30 PM EDT Annual physical exam LIPID PANEL WITH REFLEX TO DIRECT LDL Routine 12/30/2024 4:30 PM EDT Annual physical exam FERRITIN Routine 12/30/2024 4:30 PM EDT Iron deficiency anemia, unspecified iron deficiency anemia type IRON AND TIBC Routine 12/30/2024 4:30 PM EDT Iron deficiency anemia, unspecified iron deficiency anemia type D-DIMER Routine 12/30/2024 4:30 PM EDT Atypical chest pain ECG 12-LEAD TRACING ONLY Routine 12/30/2024 4:00 PM EDT Atypical chest pain HEPATITIS C ANTIBODY Routine 12/14/2024 4:07 PM EDT Encounter for screening for viral disease HIV 1, 2 ANTIBODY, P24 ANTIGEN WITH REFLEX TO DIFFERENTIATION Routine 12/14/2024 4:07 PM EDT Encounter for screening for viral disease TREPONEMA PALLIDUM ANTIBODY WITH REFLEX TO RPR AND PARTICLE AGGLUTINATION Routine 12/14/2024 4:07 PM EDT Venereal disease screening TRICHOMONAS VAGINALIS ANTIGEN Routine 12/14/2024 4:03 PM EDT Venereal disease screening WET PREP, GENITAL Routine 12/14/2024 4:0 3 PM EDT Venereal disease screening CHLAMYDIA TRACHOMATIS AND NEISSERIA GONORRHOEAE PCR Routine 12/14/2024 4:03 PM EDT Venereal disease screening INTERFERON GAMMA INTERPRETATION Routine 12/03/2024 1:50 PM EDT Screening-pulmonary TB INTERFERON GAMMA ANTIGEN 2 Routine 12/03/2024 1:50 PM EDT Screening-pulmonary TB INTERFERON GAMMA ANTIGEN 1 Routine 12/03/2024 1:50 PM EDT Screening-pulmonary TB INTERFERON GAMMA MITOGEN Routine 12/03/2024 1:50 PM EDT Screening-pulmonary TB INTERFERON GAMMA NIL Routine 12/03/2024 1:50 PM EDT Screening-pulmonary TB INTERFERON GAMMA FOR TB, QUALITATIVE Routine 12/03/2024 1:50 PM EDT Screening-pulmonary TB PAP SMEAR Routine 08/22/2023 from Last 3 Months or Most Recently Relevant to Health Maintenance Results * Lipid panel with reflex to direct LDL (12/30/2024 4:30 PM EDT) Cholesterol 174 0 - 200 mg/dL LAB CHEMISTRY METHOD 12/30/2024 7:54 PM EDT [facility] Triglycerides 85 0 - 150 mg/dL LAB CHEMISTRY METHOD 12/30/2024 7:54 PM EDT [facility] HDL 70 >=40 mg/dL LAB CHEMISTRY METHOD 12/30/2024 7:54 PM EDT [facility] LDL Calculated 87 0 - 100 mg/dL LAB CHEMISTRY METHOD 12/30/2024 7:54 PM EDT [facility] VLDL Cholesterol Kamar 17 mg/dL LAB CHEMISTRY METHOD 12/30/2024 7:54 PM EDT [facility] Non HDL Chol. (LDL+VLDL) 104 <145 mg/dL LAB CHEMISTRY METHOD 12/30/2024 7:54 PM EDT [facility] Chol/HDL Ratio 2.5 0.0 - 4.4 LAB CHEMISTRY METHOD 12/30/2024 7:54 PM EDT [facility] Blood Venous blood specimen / Unknown Venipuncture / Unknown 12/30/2024 4:30 PM EDT 12/30/2024 4:30 PM EDT us Rukhsana PRESSLEY LAB BLOOD ORDERABLES Final Re sult [facility] [address] [place] [address], [place] [phone] * (ABNORMAL) CBC auto differential (12/30/2024 4:30 PM EDT) WBC 9.2 4.8 - 10.8 K/mcL LAB HEMETOLOGY METHOD 12/30/2024 6:30 PM EDT [facility] RBC 5.60(H) 3.80 - 4.80 M/mcL LAB [facility] Hemoglobin 12.5 11.5 - 16.0 g/dL LAB HEMETOLOGY METHOD 12[facility]30[facility]24 [facility] Hematocrit 41.7 35.0 - 47.0 % LAB HEMETOLOGY METHOD 12/30/2024 6[facility] MCV 74.6(L) 79.0 - 98.0 FL LAB HEMETOLOGY METHOD 12/30/2024 6[facility] MCH 22.4(L) 27.0 - 32.0 pcg LAB HEMETOLOGY METHOD 12/30/2024 6[facility] MCHC 30.0(L) 32.0 - 37.0 g/dL LAB HEMETOLOGY METHOD 12/30/2024 6[facility] RDW 14.7 11.0 - 15.0 % LAB HEMETOLOGY METHOD 12/30/2024 6[facility] Platelets 328 130 - 400 K/mcL LAB HEMETOLOGY METHOD 12/30/2024 6:30 PM EDT [facility] MPV 11.2(H) 7.0 - 11.0 FL LAB HEMETOLOGY METHOD 12/30/2024 6[facility] NRBC 0.0 <1.0 % LAB HEMETOLOGY METHOD 12/30/2024 6[facility] NRBC Absolute 0.00 <0.10 K/mcL LAB HEMETOLOGY METHOD 12/30/2024 6:30 PM EDT [facility] Neutrophils Relative 60.3 % LAB HEMETOLOGY METHOD 12/30/2024 6:30 PM EDT [facility] Lymphocytes Relative 31.0 % LAB HEMETOLOGY METHOD 12/30[facility]2024 [facility] Monocytes Relative 7.2 % LAB HEMETOLOGY METHOD 12/30[facility]2024 [facility] Eosinophils Relative 1.0 % LAB HEMETOLOGY METHOD [facility]/30[facility]2024 [facility] Basophils Relative 0.4 % LAB HEMETOLOGY METHOD 12/30/2024 6:[address] [facility] Immature Granulocytes Relative 0.1 % LAB HEMETOLOGY METHOD 12/30/2024 6:[address] [facility] Neutrophils Absolute 5.56 1.50 - 7.00 K/mcL LAB HEMETOLOGY METHOD 12/30/2024 6:[address] [facility] Lymphocytes Absolute 2.86 1.00 - 5.00 K/mcL LAB HEMETOLOGY METHOD 12/30/2024 6:[address] [facility] Monocytes Absolute 0.66 0.20 - 1.00 K/mcL LAB HEMETOLOGY METHOD 12/30/2024 6:[address] [facility] Eosinophils Absolute 0.09 0.00 - 0.50 K/mcL LAB HEMETOLOGY METHOD 12/30/2024 6:[address] [facility] Basophils Absolute 0.04 0.00 - 0.20 K/mcL LAB HEMETOLOGY METHOD 12/30/2024 6:[address] [facility] Immature Granulocytes Absolute 0.01 0.00 - 0.03 K/mcL LAB HEMETOLOGY METHOD 12/30/2024 6:[address] [facility] Blood Venous blood specimen / Unknown Venipuncture / Unknown 12/30/2024 4:30 PM EDT 12/30/2024 4:30 PM EDT us Rukhsana PRESSLEY LAB BLOOD ORDERABLES Final Re sult Performing Organization Address [facility]/ZIP Co de Phone Number [facility] [address] [place] [address], [place] [phone] * Iron and TIBC (12/30/2024 4:30 PM EDT) [facility] Iron 124 40 - 150 mcg/dL LAB CHEMISTRY METHOD 12/30/2024 7:54 PM EDT [facility] TIBC 398 250 - 450 mcg/dL LAB CHEMISTRY METHOD 12/30/2024 7:54 PM EDT [facility] Iron Saturation 31 15 - 50 % LAB CHEMISTRY METHOD 12/30/2024 7:54 PM EDT [facility] Blood Venous blood specimen / Unknown Venipuncture / Unknown 12/30/2024 4:30 PM EDT 12/30/2024 4:30 PM EDT us Rukhsana PRESSLEY LAB BLOOD ORDERABLES Final Re sult Performing Organization Address [facility] de Phone Number [facility] [address] [place] [address], [place] [phone] * D-Dimer (12/30/2024 4:30 PM EDT) Pathologist [facility] D-Dimer, Quant (D-DU) 168 <=230 ng/mL DDU LAB COAGULATION METHOD 12/30/2024 6:32 PM EDT [facility] Blood Venous blood specimen / Unknown Venipuncture / Unknown 12/30/2024 4:30 PM EDT 12/30/2024 4:30 PM EDT Narrative [facility] - 12/30/2024 6:32 PM EDT D-Dimer <230 ng/mL (D-Dimer units) is the threshold for exclusion of DVT/PE. D-Dimer may be elevated in: Critically ill, severely infected, trauma patients, DIC, acute CVA, acute NH, unstable angina, AF, old age, , and smoking. D-Dimer may be decreased with: Initiation of heparin therapy and oral anticoagulants. us Rukhsana PRESSLEY LAB BLOOD ORDERABLES Final Re sult Performing Organization Address [facility] Co de Phone Number [facility] [address] [place] [address], [place] [phone] * Ferritin (12/30/2024 4:30 PM EDT) [facility] Ferritin 14 8 - 252 ng/mL LAB CHEMISTRY METHOD 12/30/2024 7:54 PM EDT [facility] Blood Venous blood specimen / Unknown Venipuncture / Unknown 12/30/2024 4:30 PM EDT 12/30/2024 4:30 PM EDT us Rukhsana PRESSLEY LAB BLOOD ORDERABLES Final Re sult Performing Organization Address [facility] de Phone Number [facility] [address] [place] [address], [place] [phone] * Comprehensive metabolic panel (12/30/2024 4:30 PM EDT) [facility] Sodium 140 133 - 145 mmol/L LAB CHEMISTRY METHOD 12/30/2024 7:54 PM EDT [facility] Potassium 4.4 3.5 - 5.5 mmol/L LAB CHEMISTRY METHOD 12/30/2024 7:54 PM EDT [facility] Chloride 107 96 - 110 mmol/L LAB CHEMISTRY METHOD 12/30/2024 7:54 PM EDT [facility] CO2 27 21 - 32 mmol/L LAB CHEMISTRY METHOD 12/30/2024 7:54 PM EDT [facility] Anion Gap 6 3 - 11 LAB CHEMISTRY METHOD 12/30/2024 7:[address] [facility] Glucose 82 70 - 100 mg/dL LAB CHEMISTRY METHOD 12/30/2024 7:[address] [facility] BUN 14 5 - 25 mg/dL LAB CHEMISTRY METHOD 12/30/2024 7:[address] [facility] Creatinine 0.84 0.50 - 1.10 mg/dL LAB CHEMISTRY METHOD 12/30/2024 7:[address] [facility] eGFR 95 >=60 mL/min/1. 73m2 LAB CHEMISTRY METHOD 12/30/2024 7:[address] [facility] Comment:Calculation based on the Chronic Kidney Disease Epidemiology Collaboration (CKD-EPI) equation refit without adjustment for race. BUN/Creatinine Ratio 16.7 LAB CHEMISTRY METHOD 12/30/2024 7:[address] [facility] Calcium 9.3 8.5 - 10.5 mg/dL LAB CHEMISTRY METHOD 12/30/2024 7:[address] [facility] AST (SGOT) 11 10 - 42 unit/L LAB CHEMISTRY METHOD 12/30/2024 7:[address] [facility] ALT (SGPT) 23 10 - 60 unit/L LAB CHEMISTRY METHOD 12/30/2024 7:[address] [facility] Alkaline Phosphatase 57 42 - 121 unit/L LAB CHEMISTRY METHOD 12/30/2024 7:[address] [facility] Total Protein 7.6 6.0 - 8.0 g/dL LAB CHEMISTRY METHOD 12/30/2024 7:[address] [facility] Albumin 4.0 3.2 - 5.0 g/dL LAB CHEMISTRY METHOD 12/30/2024 7:[address] [facility] Total Bilirubin 0.4 0.0 - 1.4 mg/dL LAB CHEMISTRY METHOD 12/30/2024 7:54 PM EDT [facility] Blood Venous blood specimen / Unknown Venipuncture / Unknown 12/30/2024 4:30 PM EDT 12/30/2024 4:30 PM EDT Rukhsana PRESSLEY LAB BLOOD ORDERABLES Final Re sult Performing Organization Address City/[facility]/ZIP Co de Phone Number [facility] [address] [place] [address], [place] [phone] * ECG 12 lead Tracing Only (12/30/2024 4:00 PM EDT) us Rukhsana PRESSLEY ECG ORDERABLES Final Result * Hepatitis C antibody (12/14/2024 4:07 PM EDT) Hepatitis C Antibody Negative Negative LAB CHEMISTRY METHOD 12/14/2024 8:29 PM EDT [facility] Blood Venous blood specimen / Unknown Venipuncture / Unknown 12/14/2024 4:07 PM EDT 12/14/2024 4:07 PM EDT Janet Holbrook CNM LAB BLOOD ORDERABLES Final Result Performing Organization Address [facility]/ZIP Co de Phone Number [facility] [address] [place] [address], [place] [phone] * HIV 1,2 antibody, p24 antigen with reflex to differentiation (12/14/2024 4:07 PM EDT) HIV Combo AB/AG Negative Negative LAB CHEMISTRY METHOD 12/14/2024 8:29 PM EDT [facility] Blood Venous blood specimen / Unknown Venipuncture / Unknown 12/14/2024 4:07 PM EDT 12/14/2024 4:07 PM EDT Narrative [facility] - 12/14/2024 8:29 PM EDT This assay is a 4th generation assay allowing for earlier detection of HIV infection by detecting the presence of the HIV-1 p24 antigen as well as the traditional antibodies to HIV type 1 (including group O) and type 2. Use of a 4th generation assay is the current CDC recommendation for HIV screening. [facility] LAB BLOOD ORDERABLES Final Result Performing Organization Address City/[facility]/ZIP Co de Phone Number [facility] [address] [place] [address], [place] [phone] * Treponema pallidum antibody with reflex to RPR and particle agglutination (12/14/2024 4:07 PM EDT) Pathologist [facility] T. Pallidum Antibodies Negative Negative LAB CHEMISTRY METHOD 12/14/2024 8:00 PM EDT [facility] Blood Venous blood specimen / Unknown Venipuncture / Unknown 12/14/2024 4:07 PM EDT 12/14/2024 4:07 PM EDT [facility] LAB BLOOD ORDERABLES Final Result Performing Organization Address [facility] Co de Phone Number [facility] [address] [place] [address], [place] [phone] * Trichomonas vaginalis antigen (12/14/2024 4:03 PM EDT) [facility] Trichomonas vaginalis Negative Negative 12/14/2024 7:49 PM EDT [facility] Swab Vaginal structure / Unknown Non-blood Collection / Unknown 12/14/2024 4:03 PM EDT 12/14/2024 4:03 PM EDT [facility] LAB MICROBIOLOGY - GENERAL ORDERABLES Final Result Performing Organization Address City/[facility]/ZIP Co de Phone Number [facility] [address] [place] [address], [place] [phone] * Chlamydia trachomatis and Neisseria gonorrhoeae molecular study (12/14/2024 4:03 PM EDT) Neisseria gonorrhoeae PCR Negative Negative LAB MOLECULAR DIAGNOSTICS METHOD 12/15/2024 10:51 AM EDT [facility] Chlamydia trachomatis PCR Negative Negative LAB MOLECULAR DIAGNOSTICS METHOD 12/15/2024 10:51 AM EDT [facility] Swab Vaginal structure / Unknown Non-blood Collection / Unknown 12/14/2024 4:03 PM EDT 12/14/2024 4:03 PM EDT [facility] LAB MICROBIOLOGY - GENERAL ORDERABLES Final Result Performing Organization Address [facility]/ZIP Co de Phone Number [facility] [address] [place] [address], * Wet prep, genital (12/14/2024 4:03 PM EDT) Clue Cells, Wet Prep Negative Negative 12/14/2024 7:49 PM EDT [facility] Yeast, Wet Prep Negative Negative 12/14/2024 7:49 PM EDT [facility] Trichomonas, Wet Prep Indeterminate Negative 12/14/2024 7:49 PM EDT [facility] Comment:Refer to Trichomonas antigen. Swab Vaginal structure / Unknown Non-blood Collection / Unknown 12/14/2024 4:03 PM EDT 12/14/2024 4:03 PM EDT [facility] MICROBIOLOGY - GENERAL ORDERABLES Final Result [facility] [address] [place] [address], * Interferon gamma interpretation (12/03/2024 1:50 PM EDT) [facility] Quantiferon Plus Interpretation Negative Negative LAB CHEMISTRY METHOD 12/05/2024 12:31 PM EDT [facility] Blood Venous blood specimen / Unknown Venipuncture / Unknown 12/03/2024 1:50 PM EDT 12/03/2024 1:50 PM EDT us [facility] BLOOD ORDERABLES Final Re sult [facility] [address] [place] [address], [place] [phone] * Interferon gamma antigen 2 (12/03/2024 1:50 PM EDT) Blood Venous blood specimen / Unknown Venipuncture / Unknown 12/03/2024 1:50 PM EDT 12/03/2024 1:50 PM EDT R[facility]hs[facility] PR[facility] LAB BLOOD ORDERABLES Final Re sult [facility] [address] [place] [address], [place] [phone] * Interferon gamma antigen 1 (12/03/2024 1:50 PM EDT) Blood Venous blood specimen / Unknown Venipuncture / Unknown 12/03/2024 1:50 PM EDT 12/03/2024 1:50 PM EDT [facility]hs[facility] PRESS[facility] LAB BLOOD ORDERABLES Final Re sult [facility] [address] [place] [address], [place] [phone] * Interferon gamma mitogen (12/03/2024 1:50 PM EDT) Blood Venous blood specimen / Unknown Venipuncture / Unknown 12/03/2024 1:50 PM EDT 12/03/2024 1:50 PM EDT [facility] PRESS[facility] LAB BLOOD ORDERABLES Final Re sult [facility] [address] [place] [address], * Interferon gamma NIL (12/03/2024 1:50 PM EDT) Blood Venous blood specimen / Unknown Venipuncture / Unknown 12/03/2024 1:50 PM EDT 12/03/2024 1:50 PM EDT [facility] [place] [facility] BLOOD ORDERABLES Final Re sult Performing Organization Address [facility] Co de Phone Number [facility] [address] [place] [address], * Pap smear (08/22/2023) 08/22/2023 Narrative HISTORICAL TESTING LAB RESULTING AGENCY - 09/06/2023 7:46 AM EDT [id number] THINPREP PAP, IMAGED: NEGATIVE FOR SQUAMOUS INTRAEPITHELIAL LESION AND MALIGNANCY . MARY BRAUN(ASCP) (CASE ELECTRONICALLY SIGNED 09 05 2023) RESULT OF APTIMA HIGH RISK HPV ASSAY: HIGH RISK HPV: NEGATIVE (SEROTYPES 16,18,31,33,35,39,45,51,52,56,58,59,66,68) COMPLETED ON 2023-08-27 ADEQUACY: SATISFACTORY ENDOCERVICAL/TRANSFORMATION ZONE COMPONENT ABSENT. SOURCE: THINPREP PAP HPV ANY DX: REFLEX 16 AND 18, CERVICAL, IMAGED CLINICAL INFORMATION: HPV ANY DIAGNOSIS. HORMONES, [Z01.419] Jayde Wilkinson CNM LAB CYTOLOGY ORDERABLES Final Result HISTORICAL TESTING LAB RESULTING AGENCY from Last 3 Months or Most Recently Relevant to Health Maintenance Insurance [facility] [place] [address] Care Teams Process Control Engineer Relationship Specialty Start Date End Date Aracelis Armas MD [address] [place] [address] PCP - General Internal Medicine 06/11/24
[2025-01-21 12:33] LABS: CT PCR Urine NOT DETECTED (Not Detect.); NG PCR Urine NOT DETECTED (Not Detect.)
[2025-01-21 13:02] VITALS: BP 116/72; PULSE 65; RESP 18; O2SAT 98
[2025-01-21 13:11] VITALS: BP 116/72; PULSE 65; RESP 18; TEMP -17.7; TEMP 0; O2SAT 98
[2025-01-21 13:40] LABS: Bacterial Vaginosis PCR NEGATIVE (Negative); Candida Group PCR DETECTED (Not Detect); Candida glab krusei PCR NOT DETECTED (Not Detect); Trichomonas vaginalis PCR NOT DETECTED (Not Detect)
== END 2025-01-21 13:12 | disposition home or self-care (01) ==
PROVIDERS: Physician Assistant Medical; Emergency Provider Emergency Medicine Emergency Medical Services
DX: N39.0 Urinary tract infection, site not specified (principal); M54.50 Low back pain, unspecified; R30.0 Dysuria; R10.2 Pelvic and perineal pain; R11.2 Nausea with vomiting, unspecified; Z87.442 Personal history of urinary calculi; Z79.899 Other long term (current) drug therapy
CPT/HCPCS: 36415; 74176; 80053; 81001; 81515; 82248; 83690; 83735; 84702; 85025; 87086; 87088; 87186; 87491; 87591; 96374; 96375; 99284; 99285; J0696; J1885; J2405

== ENCOUNTER → 2025-01-21 11:55 | Outpatient (BNV) | payer OTHER, SELFPAY | PROVIDERS: Visit Provider Radiology Diagnostic Radiology | DX: R10.30 Lower abdominal pain, unspecified (principal) | CPT/HCPCS: 74176 ==